=== PATIENT | female | born 1950 | race Caucasian/White ===

== ENCOUNTER 2022-11-11 10:28 | Emergency (ER) | payer MEDICARE, BC ==
[~2022-11-11] VITALS: Ht 165.1 cm; Wt 102.1 kg
[2022-11-11 11:29] LABS: BASOPHILS ABSOLUTE AUTO 0.04 K/mm3 (0.00-0.23); BASOPHILS PERCENT AUTO 1 % (0-2); EOSINOPHILS ABSOLUTE AUTO 0.07 K/mm3 (0.00-0.68); EOSINOPHILS PERCENT AUTO 1 % (0-6); Hematocrit 40.1 % (33.0-51.0); Hemoglobin 13.5 g/dL (11.5-16.0); IMMATURE GRAN ABSOLUTE AUTO 0.02 K/mm3 (0.00-0.10); IMMATURE GRAN PERCENT AUTO 0 % (0-1); LYMPHOCYTES ABSOLUTE AUTO 0.94 K/mm3 (0.84-5.20); LYMPHOCYTES PERCENT AUTO 16 % (21-46); MONOCYTES ABSOLUTE AUTO 0.45 K/mm3 (0.16-1.47); MONOCYTES PERCENT AUTO 8 % (4-13); Mean Corpuscular HGB 30.3 pg (26.0-34.0); Mean Corpuscular HGB Conc 33.7 g/dL (31.5-36.5); Mean Corpuscular Volume 90 fL (80-100); Mean Platelet Volume 9.9 fL (9.1-12.4); NEUTROPHILS ABSOLUTE AUTO 4.48 K/mm3 (1.96-9.15); NEUTROPHILS PERCENT AUTO 75 % (41-73); Platelet Count 256 K/mm3 (150-400); RDW Coefficient Variation 12.3 % (11.7-14.2); RDW Standard Deviation 39.9 fL (35.1-46.3); Red Blood Cell Count 4.45 M/mm3 (3.80-5.20)
[2022-11-11 11:51] LABS: Bilirubin, Total 0.5 mg/dL (0.1-1.0); Bun/Creatinine Ratio 30.6 (12.0-20.0); Calcium, Blood 9.8 mg/dL (8.5-10.1); Creatinine, Blood 1.08 mg/dL (0.40-1.00); Globulin, Blood 4.1 g/dL (2.2-4.0); Potassium, Blood 3.3 mmol/L (3.5-5.5); Total Protein, Blood 8.1 g/dL (6.4-8.2)
[2022-11-11] MEDS ORDERED: LOSARTAN-HCTZ1 EACH PO (12:16)
[2022-11-11] MEDS ORDERED: ASPI81CH PO (12:17)
[2022-11-11] MEDS ORDERED: METO100ER PO (12:17)
[2022-11-11] MEDS ORDERED: FURO20 PO (12:18)
[2022-11-11] MEDS ORDERED: PROB500 PO (12:18)
[2022-11-11] MEDS ORDERED: ELIQUIS5 MG PO (15:32)
[2022-11-11 15:41] VITALS: BP 135/72
== END 2022-11-11 15:48 | disposition home or self-care (01) ==
LOC: ER 10:28
PROVIDERS: Physician Assistant
DX: I48.91 Unspecified atrial fibrillation (principal); Z88.0 Allergy status to penicillin; Z88.8 Allergy status to other drugs, medicaments and biological substances; Z79.899 Other long term (current) drug therapy; Z79.82 Long term (current) use of aspirin
CPT/HCPCS: 36415; 71046; 80053; 83735; 83880; 84484; 85025; 93005; 93010; 96361; 96365; 99285-25; A9270; J3475; J7030

== ENCOUNTER 2022-12-07 10:00 | Day surgery (SDC) | payer MEDICARE, BC ==
[~2022-12-07 10:00] MED LIST: ASPI81CH PO; ELIQUIS5 MG PO; FURO20 PO; LOSARTAN-HCTZ1 EACH PO; METO100ER PO; PROB500 PO
== END 2022-12-13 23:36 | disposition home or self-care (01) ==
LOC: MOI MAM 10:00
DX: C50.811 Malignant neoplasm of overlapping sites of right female breast (principal)
CPT/HCPCS: 19083; 77065; 88305; 88341; 88342; 88360; A4648

== ENCOUNTER 2022-12-21 05:45 | Day surgery (SDC) | payer MEDICARE, BC ==
[~2022-12-21] VITALS: Ht 160 cm; Wt 102.3 kg
[2022-12-21] VITALS (11 sets, daily range): BP systolic 112–162; BP diastolic 56–74
[2022-12-21] MEDS ORDERED: CENTRUM SILVER1 EAC2 PO (06:39)
--- NOTE | 2022-12-21 07:13 | NUR ---
Ambulatory in Day Surgery History, Chart, Medications and Allergies reviewed before start of procedure.Patient confirms NPO status and agrees with scheduled surgery. Pre-Op teaching done. Pt verbalizes understanding. Patient States Post-Procedure ride home has been arranged.
--- NOTE | 2022-12-21 09:37 | NUR ---
Patient up to Ambulate independently. Gait steady. Discharged via wheelchair to private car for ride home.
== END 2022-12-24 23:18 | disposition home or self-care (01) ==
LOC: ORSCMMR 05:45 → ORD 07:30 → ORSCMMR 07:30
PROVIDERS: Surgery
PROC: 0JH60WZ Insertion of Totally Implantable Vascular Access Device into Chest Subcutaneous Tissue and Fascia, Open Approach (ICD-10-PCS; principal; 2022-12-21 07:30)
PROC: B544ZZA Ultrasonography of Left Jugular Veins, Guidance (ICD-10-PCS; principal; 2022-12-21 07:30)
PROC: 05HN33Z Insertion of Infusion Device into Left Internal Jugular Vein, Percutaneous Approach (ICD-10-PCS; principal; 2022-12-21 07:30)
DX: C50.911 Malignant neoplasm of unspecified site of right female breast (principal); Z17.1 Estrogen receptor negative status [ER-]; I10 Essential (primary) hypertension; I48.0 Paroxysmal atrial fibrillation; I35.0 Nonrheumatic aortic (valve) stenosis; Z79.899 Other long term (current) drug therapy; Z79.82 Long term (current) use of aspirin
CPT/HCPCS: 77001; C1788; J0690; J1642; J1885; J2250; J2370; J2795; J3010; J7120

== ENCOUNTER → 2023-01-16 | Outpatient (CLI) | payer MEDICARE, BC ==
[~2023-01-16] MED LIST changes: +CENTRUM SILVER1 EAC2 PO
[2023-01-16 14:22] LABS: Platelet Count 381 K/mm3 (150-400)
[2023-01-16 14:38] LABS: International Normalized Ratio 1.03; Prothrombin Time Results 10.8 Sec (9.7-11.5)
== END | disposition home or self-care (01) ==
LOC: LAB SHORT 13:15 → LAB 13:15
PROVIDERS: Registered Nurse Oncology
DX: S90.31XA Contusion of right foot, initial encounter (principal)
CPT/HCPCS: 85049; 85610; 85730

== ENCOUNTER 2023-04-12 08:57 | Day surgery (SDC) | payer MEDICARE, BC | END 2023-04-24 23:52 | disposition home or self-care (01) | LOC: MOI US 08:57 → MOI MAM 09:30 → MOI US 04-15 09:30 | DX: C50.211 Malignant neoplasm of upper-inner quadrant of right female breast (principal) | CPT/HCPCS: 19285; 77065; A4648 ==

== ENCOUNTER 2023-04-15 07:19 | Day surgery (SDC) | payer MEDICARE, BC ==
[2023-04-15] VITALS (7 sets, daily range): BP systolic 103–132; BP diastolic 61–88
[~2023-04-15] VITALS: Ht 164 cm; Wt 98.2 kg
--- NOTE | 2023-04-15 09:19 | NUR ---
Ambulatory in Day Surgery History, Chart, Medications and Allergies reviewed before start of procedure.Patient confirms NPO status and agrees with scheduled surgery. Patient reports completing Chlorhexadine shower X2 prior to admission to hospital.Surgical site prepped with 2% Chlorhexidine cloth wipe. Patient States Post-Procedure ride home has been arranged.
--- NOTE | 2023-04-15 13:10 | NUR ---
Patient up to Ambulate independently. Gait steady. Discharge instructions reviewed with patient. Patient verbalizes understanding. Copy given to patient to take home. Discharged via wheelchair to private car for ride home WITH . GLASSES AND CLOTHES GIVEN TO PATIENT.
== END 2023-04-15 13:10 | disposition home or self-care (01) ==
LOC: ORSCMMR 07:19 → NM 07:19 → ORSCMMR 07:20 → NM 08:30 → ORSCMMR 13:10 → NM 23:06
PROVIDERS: Surgery
PROC: 07B50ZX Excision of Right Axillary Lymphatic, Open Approach, Diagnostic (ICD-10-PCS; principal; 2023-04-15 09:30)
PROC: 0HBT0ZZ Excision of Right Breast, Open Approach (ICD-10-PCS; principal; 2023-04-15 09:30)
DX: C50.211 Malignant neoplasm of upper-inner quadrant of right female breast (principal); Z17.1 Estrogen receptor negative status [ER-]; D36.0 Benign neoplasm of lymph nodes; I10 Essential (primary) hypertension; Z79.899 Other long term (current) drug therapy; E66.9 Obesity, unspecified; Z68.36 Body mass index [BMI] 36.0-36.9, adult; E78.5 Hyperlipidemia, unspecified; Z79.82 Long term (current) use of aspirin
CPT/HCPCS: 38792; 76098; 88307; A9270; A9520; J0690; J1100; J1885; J2250; J2371; J2405; J2704; J3010; J7120; Q9968

== ENCOUNTER 2023-06-20 22:22 | Inpatient (IN) | payer MEDICARE, BC ==
[~2023-06-20] VITALS: Ht 165.1 cm; Wt 108.0 kg
[2023-06-20 23:10] LABS: BASOPHILS ABSOLUTE AUTO 0.01 K/mm3 (0.00-0.23); BASOPHILS PERCENT AUTO 0 % (0-2); EOSINOPHILS PERCENT AUTO 0 % (0-6); Hematocrit 36.8 % (33.0-51.0); Hemoglobin 12.4 g/dL (11.5-16.0); IMMATURE GRAN ABSOLUTE AUTO 0.03 K/mm3 (0.00-0.10); IMMATURE GRAN PERCENT AUTO 0 % (0-1); LYMPHOCYTES ABSOLUTE AUTO 0.28 K/mm3 (0.84-5.20); LYMPHOCYTES PERCENT AUTO 4 % (21-46); MONOCYTES ABSOLUTE AUTO 1.04 K/mm3 (0.16-1.47); MONOCYTES PERCENT AUTO 13 % (4-13); Mean Corpuscular HGB 29.9 pg (26.0-34.0); Mean Corpuscular HGB Conc 33.7 g/dL (31.5-36.5); Mean Corpuscular Volume 89 fL (80-100); Mean Platelet Volume 9.2 fL (9.1-12.4); NEUTROPHILS ABSOLUTE AUTO 6.47 K/mm3 (1.96-9.15); NEUTROPHILS PERCENT AUTO 83 % (41-73); NRBC ABSOLUTE 0.02 K/mm3 (0.00-0.02); NRBC Auto 0.3 /100 WBC (0.0-0.2); Platelet Count 308 K/mm3 (150-400); RDW Coefficient Variation 14.7 % (11.7-14.2); RDW Standard Deviation 44.8 fL (35.1-46.3); Red Blood Cell Count 4.15 M/mm3 (3.80-5.20); White Blood Cell Count 7.83 K/mm3 (4.00-11.30)
[2023-06-20 23:37] LABS: Albumin/Globulin Ratio 0.9 (0.8-1.8); Bilirubin, Total 1.7 mg/dL (0.1-1.0); Bun/Creatinine Ratio 22.9 (12.0-20.0); Calcium, Blood 8.6 mg/dL (8.5-10.1); Creatinine, Blood 3.45 mg/dL (0.40-1.00); Globulin, Blood 3.2 g/dL (2.2-4.0); Magnesium, Blood 1.9 mg/dL (1.6-2.4); Potassium, Blood 3.3 mmol/L (3.5-5.5); Total Protein, Blood 6.2 g/dL (6.4-8.2)
[2023-06-20] MEDS ORDERED: ELIQUIS5 M2 PO (23:41)
[2023-06-21] VITALS (84 sets, daily range): BP systolic 66–117; BP diastolic 39–73
[2023-06-21] MEDS ORDERED: CAPE500 (01:05)
[2023-06-21 02:12] LABS: Adenovirus F 40/41 Not Detected (NOT DETECT); Astrovirus Not Detected (NOT DETECT); Campylobacter Sp Not Detected (NOT DETECT); Cryptosporidium Not Detected (NOT DETECT); Cyclospora Cayetanensis Not Detected (NOT DETECT); E. Coli O157 Not Detected (NOT DETECT); Entamoeba Histolytica Not Detected (NOT DETECT); Enteroaggregative E. coli-EAEC Not Detected (NOT DETECT); Enteropathogenic E. coli-EPEC Not Detected (NOT DETECT); Enterotoxigenic E. coli-ETEC Not Detected (NOT DETECT); Giardia Lamblia Not Detected (NOT DETECT); Norovirus GI/GII Not Detected (NOT DETECT); Plesiomonas Shigelloides Not Detected (NOT DETECT); Rotavirus A Not Detected (NOT DETECT); Salmonella Sp Not Detected (NOT DETECT); Sapovirus Not Detected (NOT DETECT); Shiga Toxin-prod E. coli-STEC Not Detected (NOT DETECT); Shigella/Enteroin E. coli-EIEC Not Detected (NOT DETECT); Vibrio Cholerae Not Detected (NOT DETECT); Vibrio Sp Not Detected (NOT DETECT); Yersinia Enterocolitica Not Detected (NOT DETECT)
[2023-06-21 03:59] LABS: BASOPHILS ABSOLUTE AUTO 0.01 K/mm3 (0.00-0.23); BASOPHILS PERCENT AUTO 0 % (0-2); EOSINOPHILS PERCENT AUTO 0 % (0-6); Hemoglobin 11.2 g/dL (11.5-16.0); IMMATURE GRAN ABSOLUTE AUTO 0.03 K/mm3 (0.00-0.10); IMMATURE GRAN PERCENT AUTO 0 % (0-1); LYMPHOCYTES ABSOLUTE AUTO 0.23 K/mm3 (0.84-5.20); LYMPHOCYTES PERCENT AUTO 3 % (21-46); MONOCYTES ABSOLUTE AUTO 0.75 K/mm3 (0.16-1.47); MONOCYTES PERCENT AUTO 10 % (4-13); Mean Corpuscular HGB 30.3 pg (26.0-34.0); Mean Corpuscular HGB Conc 33.9 g/dL (31.5-36.5); Mean Corpuscular Volume 89 fL (80-100); Mean Platelet Volume 9.1 fL (9.1-12.4); NEUTROPHILS ABSOLUTE AUTO 6.33 K/mm3 (1.96-9.15); NEUTROPHILS PERCENT AUTO 86 % (41-73); Platelet Count 292 K/mm3 (150-400); RDW Coefficient Variation 14.6 % (11.7-14.2); RDW Standard Deviation 44.6 fL (35.1-46.3); White Blood Cell Count 7.35 K/mm3 (4.00-11.30)
[2023-06-21 04:18] LABS: Albumin, Blood 2.7 g/dL (3.4-5.0); Bilirubin, Total 2.1 mg/dL (0.1-1.0); Bun/Creatinine Ratio 27.5 (12.0-20.0); Calcium, Blood 8.2 mg/dL (8.5-10.1); Creatinine, Blood 2.62 mg/dL (0.40-1.00); Globulin, Blood 2.7 g/dL (2.2-4.0); Potassium, Blood 3.1 mmol/L (3.5-5.5); Total Protein, Blood 5.4 g/dL (6.4-8.2)
--- NOTE | 2023-06-21 05:51 | NUR ---
PATIENT AOX4. AFIB WITH MAP GOAL OF >60. LEVOPHED INFUSING. ROOM AIR. NPO. DIARRHEA, RECTAL TUBE IN PLACE. PUREWICK. PORT ACCESSED.
--- NOTE | 2023-06-21 07:38 | NUR ---
AM NOTE... ASSUMED CARE OF PT AT 0700. PT IS A&Ox4. SHE IS ON LEVOPHED AT 4MCG/MIN TO KEEP MAPS>60. SHE IS IN AFIB IN THE 90'S. NO EDEMA IS NOTED ON THIS ASSESSMENT. SHE IS ON RA WITH O2 SATS>95% L/S CLEAR T/O. BT PRESENT AND HYPERACTIVE, ABD IS SOFT TO PALPATION. RECTAL TUBE IS IN PLACE WITH LIQUID BROWN STOOL. PURWICK IS IN PLACE AT THIS TIME. PT CURRENTLY DENIES ANY PAIN OR N/V. WILL CONTINUE TO MONITOR.
--- NOTE | 2023-06-21 17:46 | NUR ---
SHIFT SUMMARY.... THE PT CONTINUES TO BE ON LEVOPHED DRIP AT 2MCG/MIN TO KEEP MAPS>60. LR RUNNING AT 250MLS/HR. SHE CONTINUES TO BE IN AFIB IN THE 90'S-100'S. THE RECTAL TUBE HAD DRAINED APROX 2L OF LIQUID BROWN STOOL TO GRAVITY. PURWICK IN PLACE HAD DRAINED 750MLS OF DARK YELLOW URINE. SHE DENIES ANY N/V SOB OR PAIN THIS SHIFT. CALL LIGHT IN REACH WILL CONTINUE TO MONITOR UNTIL REPORT IS GIVEN TO ONCOMING RN.
[2023-06-22] VITALS (89 sets, daily range): BP systolic 74–115; BP diastolic 44–73
[2023-06-22 04:34] LABS: Hematocrit 31.4 % (33.0-51.0); Hemoglobin 10.4 g/dL (11.5-16.0); Mean Corpuscular HGB 29.9 pg (26.0-34.0); Mean Corpuscular HGB Conc 33.1 g/dL (31.5-36.5); Mean Corpuscular Volume 90 fL (80-100); Mean Platelet Volume 8.8 fL (9.1-12.4); Platelet Count 264 K/mm3 (150-400); RDW Coefficient Variation 14.6 % (11.7-14.2); RDW Standard Deviation 44.6 fL (35.1-46.3); Red Blood Cell Count 3.48 M/mm3 (3.80-5.20)
--- NOTE | 2023-06-22 04:45 | NUR ---
SHIFT SUMMARY A/O X4, DID NOT SLEEP MUCH. AFIB W/RATE 90-130'S AT TIMES. BP SUPPORTED WITH LEVOPHED @ 2. O2 SAT 96% ON ROOM AIR, LUNG SOUNDS ARE CLEAR. 1 EPISODE OF VOMITING (700 ML) WITHOUT NAUSEA. PT STATES IT JUST CAME WITHOUT WARNING. HEARTBURN RESOLVED QUICKLY AFTER EMISIS. RECTAL TUBE IN PLACE DRAINING LIQUID BROWN STOOL. SKIN UNCHANGED, JUN AREA SEVERELY REDDENED. CLEANSED GENTLY AND BARRIER CREAM APPLIED. MEDIPORT TO LEFT CHEST ACCESSED AND INFUSING, PIV INFUSING WELL. GRANDSON IN TO VISIT, UPDATED ON CURRENT CONDITION. POC ONGOING.
[2023-06-22 04:56] LABS: BAND PERCENT MAN 14 % (0-8); BASOPHILS PERCENT MAN 0 % (0-2); EOSINOPHILS PERCENT MAN 0 % (0-6); LYMPHOCYTES ABSOLUTE MAN 0.51 K/mm3 (0.84-5.20); LYMPHOCYTES PERCENT MAN 10 % (21-46); MONOCYTES ABSOLUTE MAN 1.22 K/mm3 (0.16-1.47); MONOCYTES PERCENT MAN 24 % (4-13); NEUTROPHILS ABSOLUTE MAN 3.36 K/mm3 (1.96-9.15); SEG NEUTROPHILS PERCENT MAN 52 % (41-73); TOTAL CELLS COUNTED 100
[2023-06-22 04:59] LABS: Bun/Creatinine Ratio 34.2 (12.0-20.0); Calcium, Blood 8.5 mg/dL (8.5-10.1); Creatinine, Blood 1.11 mg/dL (0.40-1.00); Magnesium, Blood 1.8 mg/dL (1.6-2.4); Phosphorus, Blood 2.1 mg/dL (2.5-4.9); Potassium, Blood 2.7 mmol/L (3.5-5.5)
--- NOTE | 2023-06-22 08:42 | NUR ---
AM NOTE... ASSUMED CARE OF PT AT 0700. PT IS A&Ox4. SHE IS IN AFIB IN THE 90'S-100'S BP IS SOFT WITH MAPS >60 WITH LEVOPHED DRIP AT 4MCG/MIN. LR RUNNING AT 250MLS/HR WHICH WAS CHANGED TO 125MLS/HR PER DR. BENJAMIN. L/S CLEAR T/O PT IS ON RA WITH O2 SATS >95%. RECTAL TUBE IS PATENT AND DRAINING LIQUID BROWN STOOLS TO GRAVITY. PURWICK IS IN PLACE. WILL CONTINUE TO MONITOR.
[2023-06-22 13:44] LABS: Bun/Creatinine Ratio 29.4 (12.0-20.0); Calcium, Blood 8.4 mg/dL (8.5-10.1); Creatinine, Blood 1.02 mg/dL (0.40-1.00); Potassium, Blood 2.9 mmol/L (3.5-5.5)
--- NOTE | 2023-06-22 17:41 | NUR ---
SHIFT SUMMARY.... NO ACUTE NEGATIVE CHANGES NOTED THIS SHIFT. PT CONTINUES TO BE ON LEVOPHED AT 6MCG/MIN TO KEEP MAPS >60. HER DIARRHEA HAS GREATLY DECREASED THIS SHIFT ONLY HAVING 200MLS OUT OF THE RECTAL TUBE. THE PURWICK IS ALSO WORKING WELL AT THIS TIME. PT HAS NOT SLEPT AT ALL THIS SHIFT, MULTIPLE FAMILY MEMBERS HAVE BEEN IN THE ROOM ALL DAY. THE PT HAS NOT EATEN THIS SHIFT D/T VERY POOR APPETITE AND 2 EPISODSE OF NAUSEA WITH 1 EPISODE OF EMESIS. THE PT RESPONDED BETTER TO COMPAZINE PER PT REPORT. CALL LIGHT IN REACH WILL CONTINUE TO MONITOR UNTIL REPORT IS GIVEN TO ONCOMING RN.
--- NOTE | 2023-06-22 21:05 | NUR ---
ASSUMED CARE PT IS A&O X4; PLEASANT AND COOPERATIVE W/ CARE. FAMILY AT BEDSIDE AT START OF SHIFT. WHILE TURNING PT, PT BECAME NAUSEOUS AND HAD 800ML'S OF EMESIS, NO ANTI-NAUSEA MEDICATION GIVEN D/T PT DENYING NAUSEA AFTER INITIAL BOUT. SPO2 >92% ON RA; MAP >65 W/ LEVOPHED INFUSING; HR IN THE 100-110'S, W/ SPIKES UP TO 150-160'S W/ ANY EXERTION. PT DENIES CP, SOB, AND NAUSEA. RECTAL TUBE PATENT AND DRAINING TO GRAVITY; PUREWICK IN PLACE. PT IS RESTING QUIETLY AT THIS TIME.
[2023-06-23] VITALS (65 sets, daily range): BP systolic 71–133; BP diastolic 47–97
[2023-06-23 03:17] LABS: Hematocrit 32.8 % (33.0-51.0); Hemoglobin 10.9 g/dL (11.5-16.0); Mean Corpuscular HGB 30.2 pg (26.0-34.0); Mean Corpuscular HGB Conc 33.2 g/dL (31.5-36.5); Mean Corpuscular Volume 91 fL (80-100); Mean Platelet Volume 8.6 fL (9.1-12.4); NRBC ABSOLUTE 0.02 K/mm3 (0.00-0.02); NRBC Auto 0.3 /100 WBC (0.0-0.2); Platelet Count 312 K/mm3 (150-400); RDW Coefficient Variation 15.3 % (11.7-14.2); RDW Standard Deviation 45.8 fL (35.1-46.3); Red Blood Cell Count 3.61 M/mm3 (3.80-5.20); White Blood Cell Count 6.07 K/mm3 (4.00-11.30)
[2023-06-23 03:38] LABS: Bun/Creatinine Ratio 25.3 (12.0-20.0); Calcium, Blood 8.2 mg/dL (8.5-10.1); Creatinine, Blood 0.99 mg/dL (0.40-1.00); Potassium, Blood 3.3 mmol/L (3.5-5.5)
[2023-06-23 05:11] LABS: BAND PERCENT MAN 35 % (0-8); BASOPHILS PERCENT MAN 0 % (0-2); EOSINOPHILS PERCENT MAN 0 % (0-6); LYMPHOCYTES ABSOLUTE MAN 0.48 K/mm3 (0.84-5.20); LYMPHOCYTES PERCENT MAN 8 % (21-46); MONOCYTES ABSOLUTE MAN 1.09 K/mm3 (0.16-1.47); MONOCYTES PERCENT MAN 18 % (4-13); NEUTROPHILS ABSOLUTE MAN 4.49 K/mm3 (1.96-9.15); SEG NEUTROPHILS PERCENT MAN 39 % (41-73); TOTAL CELLS COUNTED 100
--- NOTE | 2023-06-23 05:48 | NUR ---
SHIFT SUMMARY PT REMAINS A&O X4. CONTINUES TO DENY CP, SOB, OR NAUSEA. PT VOMITED TWICE TONIGHT AND STATES THAT SHE FELT NO NAUSEA PRECIPITATING EVENT. COMPLAINED OF MILD NAUSEA FOR SECOND EVENT. PT DENIES ABDOMINAL PAIN/FULLNESS. MINIMAL OUTPUT IN RECTAL TUBE. RATE IN THE 100'S, MAP >65, AND SPO2 >92% ON RA. LEVOPHED INFUSING. PT RATE IN THE 100-110'S; RATE UP INTO 180-200'S WHILE VOMITING. 140-150'S W/ EXERTION. NO COMPLAINTS OF DIZZINESS OR CP W/ BOTH EVENTS. DR TANNER NOTIFIED ABOUT HR SPIKES W/ ORDERS FOR 500NS BOLUS. PUREWICK AND RECTAL TUBE PATENT AND DRAINING TO GRAVITY.
--- NOTE | 2023-06-23 08:12 | NUR ---
AM NOTE... ASSUMED CARE OF PT AT 0700. PT IS A&Ox4. SHE IS IN AFIB IN THE 120'S-160'S. LEVOPHED IS RUNNING AT 12MCG/MIN TO KEEP MAPS>60. PT DENIES ANY CHEST PAIN/PRESSURE OR SOB. SHE IS ON RA WITH O2 SATS>95% L/S CLEAR T/O. BT PRESENT AND HYPOACTIVE, ABD IS SOFT AND NONTENDER TO PALPATION. PT HAD A RECTAL TUBE THAT WAS REMOVED DURING THIS ASSESSMENT D/T SCANT STOOL THE LAST 2 SHIFTS. PURWICK WAS REPLACED. CALL LIGHT IN REACH WILL CONITNUE TO MONITOR.
[2023-06-23 08:18] LABS: Albumin, Blood 1.9 g/dL (3.4-5.0); Albumin/Globulin Ratio 0.7 (0.8-1.8); Bilirubin, Total 0.7 mg/dL (0.1-1.0); Bun/Creatinine Ratio 22.3 (12.0-20.0); Calcium, Blood 8.3 mg/dL (8.5-10.1); Creatinine, Blood 1.03 mg/dL (0.40-1.00); Globulin, Blood 2.7 g/dL (2.2-4.0); Potassium, Blood 3.4 mmol/L (3.5-5.5); Total Protein, Blood 4.6 g/dL (6.4-8.2)
[2023-06-23 08:22] LABS: International Normalized Ratio 1.57; Prothrombin Time Results 16.1 Sec (9.7-11.5)
[2023-06-23 09:55] LABS: Source, Urine Clean Catch
[2023-06-23 10:10] LABS: Appearance, Urine Bloody (Clear); Bilirubin, Urine Neg (Neg); Blood, Urine 5+ (Neg); Color, Urine Brown (P-Yellow); Glucose Qualitative, Urine Neg (Neg); Ketones, Urine 1+ (Neg); Leukocyte Esterase, Urine 3+ (Neg); Nitrite, Urine Neg (Neg); Protein, Urine 3+ (Neg); Urobilinogen, Urine NORM (Normal)
--- NOTE | 2023-06-23 10:23 | NUR ---
PT UPDATE.... PT'S TEMP IS TRENDING UP FROM 100.9 TO 101.8, PROVIDER AWARE. PLANS TO ATTEMPT TO COBRA TRANSFER PT FOR UROLOGIST. PT HAD AN EPISODE OF N/V WITH 600MLS OF GREEN LIQUID EMESIS. DURING THIS EPISODE OF N/V THE PT'S HR INCREASED TO THE 200'S, PT WAS NOT SYMPTOMATIC DURING THIS TIME. PLAN TO PLACE A PICC LINE FOR INCREASED ACCESS. WILL CONTINUE TO MONITOR.
[2023-06-23 10:33] LABS: Red Blood Cells, Urine TNTC /hpf (0-2)
[2023-06-23 10:34] LABS: White Blood Cells, Urine 25-50 /hpf (0-5)
[2023-06-23 10:37] LABS: Bacteria Many /hpf; Squamous Epithelial Cells Rare /hpf (Few)
[2023-06-23 13:02] LABS: Source, Urine Foley catheter
[2023-06-23 13:08] LABS: Bilirubin, Urine Neg (Neg); Blood, Urine 5+ (Neg); Glucose Qualitative, Urine 1+ (Neg); Ketones, Urine 1+ (Neg); Leukocyte Esterase, Urine 3+ (Neg); Nitrite, Urine Pos (Neg); Protein, Urine 3+ (Neg); Specific Gravity, Urine 1.015 (1.003-1.022); Urobilinogen, Urine NORM (Normal)
[2023-06-23 13:28] LABS: Appearance, Urine Cloudy (Clear); Color, Urine Amber (P-Yellow)
[2023-06-23 13:31] LABS: Granular Casts 0-2 /lpf (0)
[2023-06-23 13:32] LABS: Bacteria Many /hpf; Red Blood Cells, Urine TNTC /hpf (0-2); Squamous Epithelial Cells Not Seen /hpf (Few)
--- NOTE | 2023-06-23 17:40 | NUR ---
SHIFT SUMMARY.... PT CONTINUES TO BE IN AFIB W/RVR IN THE 120'S-140'S. LEVOPHED IS NOW DOWN TO 6MCG/MIN TO KEEP MAPS>65. A REINOSO WAS PLACED PER ORDERS, THE PT'S URINE IS NOW DARK CARA/RED, UA W/CULTURE WAS SENT. PT HAS NOT HAD A BM THIS SHIFT. HER ABD IS MORE DISTENTED AND SLIGHTLY FIRM TO PALPATION. PT DOES ADMIT TO SOME TENDERNESS WITH PALPATION. SHE HAS NOT HAD ANY MORE EPISODES OF N/V SINCE EARLIER THIS SHIFT. THE PT'S CURRENT TEMP IS 101.9, SHE WAS MEDICATED WITH TYLENOL PER EMAR WITH NO RESULTS. CALL LIGHT IN REACH WILL CONTINUE TO MONITOR UNTIL REPORT IS GIVEN TO ONCOMING RN.
--- NOTE | 2023-06-23 21:03 | NUR ---
ASSUMED CARE PT FAMILY IN AT START OF SHIFT. PT A&O X4; SPO2 >92% ON RA; MAP >65 W/ LEVOPHED INFUSING. HEPARIN INFUSING PER ORDER. HR 110-120'S W/ SPIKES TO 180 WHILE VOMITING. PT HAD A BOUT OF EMESIS RIGHT BEFORE NOTE W/ 1000ML'S OF DARK GREEN. NAUSEOUS WHILE VOMITING BUT DENIES NAUSEA BEFORE EVENT. DENIES CP, SOB, OR NUMBNESS/TINGLING AT REST AND DURING EMESIS/HR SPIKE.
[2023-06-24] VITALS (86 sets, daily range): BP systolic 78–161; BP diastolic 45–94
[2023-06-24 01:17] LABS: Hematocrit 29.6 % (33.0-51.0); Hemoglobin 9.4 g/dL (11.5-16.0); Mean Corpuscular HGB 29.4 pg (26.0-34.0); Mean Corpuscular HGB Conc 31.8 g/dL (31.5-36.5); Mean Corpuscular Volume 93 fL (80-100); Mean Platelet Volume 8.7 fL (9.1-12.4); Platelet Count 278 K/mm3 (150-400); RDW Coefficient Variation 15.6 % (11.7-14.2); RDW Standard Deviation 46.9 fL (35.1-46.3); White Blood Cell Count 5.31 K/mm3 (4.00-11.30)
[2023-06-24 01:33] LABS: International Normalized Ratio 1.85; Prothrombin Time Results 18.8 Sec (9.7-11.5)
[2023-06-24 01:39] LABS: BAND PERCENT MAN 39 % (0-8); BASOPHILS PERCENT MAN 0 % (0-2); EOSINOPHILS ABSOLUTE MAN 0.21 K/mm3 (0.00-0.68); EOSINOPHILS PERCENT MAN 4 % (0-6); LYMPHOCYTES ABSOLUTE MAN 0.31 K/mm3 (0.84-5.20); LYMPHOCYTES PERCENT MAN 6 % (21-46); MONOCYTES PERCENT MAN 17 % (4-13); NEUTROPHILS ABSOLUTE MAN 3.87 K/mm3 (1.96-9.15); SEG NEUTROPHILS PERCENT MAN 34 % (41-73); TOTAL CELLS COUNTED 100
[2023-06-24 01:41] LABS: Albumin, Blood 1.7 g/dL (3.4-5.0); Albumin/Globulin Ratio 0.7 (0.8-1.8); Bilirubin, Total 0.6 mg/dL (0.1-1.0); Bun/Creatinine Ratio 19.7 (12.0-20.0); Calcium, Blood 7.7 mg/dL (8.5-10.1); Creatinine, Blood 0.81 mg/dL (0.40-1.00); Globulin, Blood 2.5 g/dL (2.2-4.0); Magnesium, Blood 1.8 mg/dL (1.6-2.4); Phosphorus, Blood 1.7 mg/dL (2.5-4.9); Potassium, Blood 3.5 mmol/L (3.5-5.5); Total Protein, Blood 4.2 g/dL (6.4-8.2)
--- NOTE | 2023-06-24 02:00 | NUR ---
UPDATE PT HAD LARGE LIQUID BROWN BOWEL MOVEMENT. WHILE CLEANING PT, PT WOULD COUGH AND LIQUID STOOL WOULD CONSISTENTLY COME OUT. RECTAL TUBE WAS REPLACED AND IS PATENT.
--- NOTE | 2023-06-24 06:03 | NUR ---
SHIFT SUMMARY NO ACUTE EVENTS SINCE PREVIOUS NOTES. PT RESTING QUIETLY W/ NO MORE BOUTS OF EMESIS. VSS W/ MAP >65; HR IN THE 100'S; SPO2 >92% ON RA. LEVOPHED, LR, AND HEPARIN INFUSING PER ORDER. REINOSO CATHETER AND RECTAL TUBE PATENT AND DRAINING TO GRAVITY.
--- NOTE | 2023-06-24 07:30 | NUR ---
ASSUMED CARE: PT RESTING IN BED, ON RA. AFIB AT 104 ON TELE. LEVOPHED AT 10MCG/MIN. HEPARIN ORDER VERIFIED WITH NIGHT RN. PT WITH RECTAL TUBE IN PLACE DRAINING BROWN LIQUID. REINOSO CATH DRAINING MAROON TINGED URINE. PT'S FAMILY AT BEDSIDE. CALL LIGHT IN REACH. DENIES NEEDS OR CONCERNS AT THIS TIME.
--- NOTE | 2023-06-24 09:56 | NUR ---
CT CALLED TO SCHEDULE DRAIN PLACEMENT FOR PATIENT AND INSTRUCTED TO STOP HEPARIN AT [address]. DISCUSS[address] GHOSH WHO REQUESTED TO LET DR OSWALD KNOW SO THAT SHE CAN COME SEE PT PRIOR TO THIS. CONTACTED DR OSWALD WHO IS CURRENTLY AT BEDSIDE.
--- NOTE | 2023-06-24 10:46 | NUR ---
DR OSWALD VISITED PT AND PLANS TO HAVE DRAIN PLACED BY CT FOR CHOLECYSTITIS. PHARMACY AWARE THAT HEPARIN IS TO BE STOPPED AT NOON. DR OSWALD NOTED THAT RIGHT ARM WAS SWOLLEN, MORESO THAN THIS AM. BP CUFF ON THAT SIDE AND PT DOES HAVE A HX OF LYMPHECTOMY. BP CUFF SWITCHED TO LEFT LEG. DR OSWALD AWARE AND VENOUS ULTRA SOUND ORDERED
--- NOTE | 2023-06-24 12:08 | NUR ---
SPARE HAND AT BEDSIDE AT THIS TIME FOR VENOUS DOPPLER
--- NOTE | 2023-06-24 14:50 | NUR ---
pt taken to ct for pigtail drain applied to gall bladder. pt was given 25mcg of fentanyl prior to procedure and stated no pain. drain in place and draining green fluid. family at bedside. radiologist contact to determine if preference for resuming heparin. no preference so hand laminator requested to resume at 1730. pharmacy aware
--- NOTE | 2023-06-24 17:38 | NUR ---
HEPARIN RESTARTED PER PREVIOUS ORDERS PER DIRECTION BY DR GHOSH
--- NOTE | 2023-06-24 17:56 | NUR ---
SHIFT SUMMARY: PT HAD A GONSALO PIGTAIL DRAIN PLACED THIS SHIFT. DRAINING GREEN, THICK LIQUID. PT DENIES NAUSEA AND NO EMESIS THIS SHIFT. RECTAL TUBE IN PLACE FOR LIQUID BROWN STOOL. REINOSO CATH DRAINING MAROON COLORED URINE. LEVOPHED OFF AT THIS TIME DUE TO STABLE VITALS. FAMILY AT BEDSIDE. NO ACUTE NEEDS OR CONCERNS AT THIS TIME
--- NOTE | 2023-06-24 18:11 | NUR ---
CALL TO DR GHOSH REGARDING PT'S HR TRENDING 130S-150S. BP CURRENTLY 103/62. INSTRUCTIONS FROM DR GHOSH FOR PRESSORS IF NEEDED.
--- NOTE | 2023-06-24 20:34 | NUR ---
ASSUMED CARE PT IS A&O X4; SPO2 >92% ON RA; MAP >65; HR VARIABLE IN THE 130-140'S. PT DENIES CP, SOB, OR NAUSEA. DRAIN SITE WNL. HEPARIN INFUSING PER EMAR. RECTAL TUBE AND REINOSO PATENT AND DRAINING TO GRAVITY.
[2023-06-24 21:36] LABS: Vancomycin, Trough 16.2 ug/mL (5.0-10.0)
[2023-06-25] VITALS (89 sets, daily range): BP systolic 75–136; BP diastolic 47–88
[2023-06-25 03:31] LABS: Hemoglobin 7.8 g/dL (11.5-16.0); Mean Corpuscular HGB 29.7 pg (26.0-34.0); Mean Corpuscular HGB Conc 31.2 g/dL (31.5-36.5); Mean Corpuscular Volume 95 fL (80-100); Mean Platelet Volume 8.8 fL (9.1-12.4); Platelet Count 214 K/mm3 (150-400); RDW Coefficient Variation 15.9 % (11.7-14.2); RDW Standard Deviation 48.6 fL (35.1-46.3); Red Blood Cell Count 2.63 M/mm3 (3.80-5.20)
[2023-06-25 03:53] LABS: BAND PERCENT MAN 7 % (0-8); BASOPHILS PERCENT MAN 0 % (0-2); EOSINOPHILS ABSOLUTE MAN 0.06 K/mm3 (0.00-0.68); EOSINOPHILS PERCENT MAN 1 % (0-6); LYMPHOCYTES ABSOLUTE MAN 0.66 K/mm3 (0.84-5.20); LYMPHOCYTES PERCENT MAN 11 % (21-46); MONOCYTES ABSOLUTE MAN 1.08 K/mm3 (0.16-1.47); MONOCYTES PERCENT MAN 18 % (4-13); MYELOCYTE ABSOLUTE MAN 0.12 K/mm3 (0.00-0.00); MYELOCYTE PERCENT MAN 2 % (0-0); NEUTROPHILS ABSOLUTE MAN 4.08 K/mm3 (1.96-9.15); SEG NEUTROPHILS PERCENT MAN 61 % (41-73); TOTAL CELLS COUNTED 100
[2023-06-25 03:54] LABS: Albumin, Blood 1.5 g/dL (3.4-5.0); Albumin/Globulin Ratio 0.7 (0.8-1.8); Bilirubin, Total 0.4 mg/dL (0.1-1.0); Bun/Creatinine Ratio 16.9 (12.0-20.0); Calcium, Blood 7.2 mg/dL (8.5-10.1); Creatinine, Blood 0.77 mg/dL (0.40-1.00); Globulin, Blood 2.1 g/dL (2.2-4.0); Magnesium, Blood 1.8 mg/dL (1.6-2.4); Phosphorus, Blood 2.1 mg/dL (2.5-4.9); Potassium, Blood 3.6 mmol/L (3.5-5.5); Total Protein, Blood 3.6 g/dL (6.4-8.2)
--- NOTE | 2023-06-25 06:00 | NUR ---
SHIFT SUMMARY PT IS A&O X4; SPO2 >92% ON RA; MAP >65 (NEOSYNEPHRINE INITIATED THIS AM); HR VARIABLE IN THE 90-100'S. PT CONTINUES TO DENY CP, SOB, OR NAUSEA. NO EMESIS THIS SHIFT. PT HAD 700 MLS OF BROWN LIQUID STOOL IN RECTAL TUBE W/ 1 UNMEASURED STOOL. REINOSO CATHETER CONTINUES TO HAVE DARK YELLOW/RED TINGED URINE. NO COMPLAINTS OF DIZZINESS OR LIGHTHEADEDNESS FROM PT. NO OTHER EVENTS NOTED THIS EVENING. PT SLEPT/RESTED QUIETLY FOR MOST OF NIGHT.
--- NOTE | 2023-06-25 07:30 | NUR ---
ASSUMED CARE: PT LAYING IN BED, AWAKE AND TALKING TO STAFF. DENIES PAIN OR NAUSEA. HR LOW 100S, AFIB ON TELE. [place] AT 20MCG/MIN. HEPARIN GTT CONFIRMED WITH ORDERS. GONSALO PIGTAIL DRAINING GREEN LIQUID. REINOSO CATH WITH CRANBERRY COLORED URINE. DISCUSSED WITH DR MONZON PT'S H AND H. DAUGHTER AT BEDSIDE. NO ACUTE NEEDS AT THIS TIME.
--- NOTE | 2023-06-25 11:10 | NUR ---
PHYSICAL THERAPY AT BEDSIDE
[2023-06-25 12:08] LABS: Hemoglobin 8.2 g/dL (11.5-16.0)
--- NOTE | 2023-06-25 15:03 | NUR ---
PT'S FAMILY REPORTED BLOOD IN GONSALO PIG TAIL LINE. UPON ASSESSMENT IT WAS NOTED THAT CRANBERRY COLORED DRAINAGE WAS NOTED. DISCUSSED WITH DR GHOSH. ORDERS IN PLACE FOR TRENDING H/H DAILY. STATES THAT HEPARIN NEEDS TO CONTINUE AT THIS TIME AND TO CONTINUE TO MONITOR IT. ALSO INSTRUCTS TO NOT USE ACCORDIAN SUCTION MUCH POSSIBLE AND TO LET IT PASSIVELY DRAIN IN ORDER TO PREVENT FURTHER TRAUMA. FAMILY AWARE AND AGREEABLE TO THIS.
--- NOTE | 2023-06-25 18:55 | NUR ---
SHIFT SUMMARY: PT OF KOTA THIS SHIFT. VSS AT THIS TIME. GONSALO PIGTAIL DRAINING GREEN AND BLOOD TINGED FLUID AT THIS TIME. REINOSO CATH CONTINUES DRAINING CRANBERRY COLORED URINE. FAMILY AT BEDSIDE MAJORITY OF SHIFT. PT WORKED WITH PT/OT THIS SHIFT. DENIES PAIN OR NAUSEA.
--- NOTE | 2023-06-25 19:30 | NUR ---
ASSUMPTION OF CARE PT RESTING IN BED, ALERT AND ORIENTED. PT ANSWERS QUESTIONS APPROPRIATELY, FOLLOWS COMMANDS, AND IS ABLE TO MAKE HER NEEDS KNOWN. HR 100-110'S AFIB, MAP >65. PT ON RA, OXYGEN SATURATION >65. GONSALO DRAIN IN PLACE TO RIGHT ABDOMEN GRAVITY GRAIN, WITH LIQUID BILE OUTPUT. TEMP REINOSO IN PLACE PATENT DRAINING DARK YELLOW/RED URINE. RECTAL TUBE IN PLACE WITH LIQUID BROWN STOOL OUTPUT. MEDIPORT ACCESSED WITH LR INFUSING AT 125MLS/HR, PIV TO RAC AND RIGHT FOREARM SL. PICC LINE IN PLACE TO NUBIA, HEPARIN INFUSING AT 15.5 UNITS/KG/HR. PT DENIES PAIN OR SOB. BED IN LOWEST POSITION, CALL LIGHT WITHIN REACH. CARE CONTINUES.
[2023-06-26] VITALS (48 sets, daily range): BP systolic 84–139; BP diastolic 46–90
[2023-06-26 04:18] LABS: Hematocrit 23.9 % (33.0-51.0); Hemoglobin 7.5 g/dL (11.5-16.0); Mean Corpuscular HGB 29.8 pg (26.0-34.0); Mean Corpuscular HGB Conc 31.4 g/dL (31.5-36.5); Mean Corpuscular Volume 95 fL (80-100); Mean Platelet Volume 8.8 fL (9.1-12.4); Platelet Count 202 K/mm3 (150-400); RDW Coefficient Variation 16.4 % (11.7-14.2); RDW Standard Deviation 50.7 fL (35.1-46.3); Red Blood Cell Count 2.52 M/mm3 (3.80-5.20)
[2023-06-26 04:38] LABS: Magnesium, Blood 1.7 mg/dL (1.6-2.4)
[2023-06-26 04:42] LABS: Alanine Aminotransfer (ALT/SGP 43 U/L (12-78); Albumin, Blood 1.5 g/dL (3.4-5.0); Albumin/Globulin Ratio 0.7 (0.8-1.8); Alk Phos 102 U/L (50-136); Anion Gap Unable to Calculate mmol/L (6-16); Aspartate Aminotrans (AST/SGOT 32 U/L (12-37); Bilirubin, Total 0.5 mg/dL (0.1-1.0); Blood Urea Nitrogen 9 mg/dL (8-24); Bun/Creatinine Ratio 12.1 (12.0-20.0); CO2, Blood 33 mmol/L (21-32); Calcium, Blood 7.4 mg/dL (8.5-10.1); Chloride, Blood 108 mmol/L (98-108); Creatinine, Blood 0.74 mg/dL (0.40-1.00); Globulin, Blood 2.1 g/dL (2.2-4.0); Glomerular Filtration Rate 86 (60-); Glucose, Blood 105 mg/dL (70-99); Phosphorus, Blood 2.2 mg/dL (2.5-4.9); Potassium, Blood 3.5 mmol/L (3.5-5.5); Sodium, Blood 140 mmol/L (136-145); Total Protein, Blood 3.6 g/dL (6.4-8.2)
[2023-06-26 04:51] LABS: BAND PERCENT MAN 4 % (0-8); BASOPHILS PERCENT MAN 0 % (0-2); EOSINOPHILS PERCENT MAN 0 % (0-6); LYMPHOCYTES % ATYPICAL MANUAL 1 % (0-0); LYMPHOCYTES ABSOLUTE MAN 1.32 K/mm3 (0.84-5.20); LYMPHOCYTES PERCENT MAN 19 % (21-46); MONOCYTES ABSOLUTE MAN 0.79 K/mm3 (0.16-1.47); MONOCYTES PERCENT MAN 12 % (4-13); MYELOCYTE ABSOLUTE MAN 0.13 K/mm3 (0.00-0.00); MYELOCYTE PERCENT MAN 2 % (0-0); NEUTROPHILS ABSOLUTE MAN 4.35 K/mm3 (1.96-9.15); SEG NEUTROPHILS PERCENT MAN 62 % (41-73); TOTAL CELLS COUNTED 100
--- NOTE | 2023-06-26 06:04 | NUR ---
SHIFT SUMMARY PT RESTING IN BED, ALERT AND ORIENTED X4. PT ABLE TO ANSWER QUESTIONS, FOLLOW COMMANDS, AND MAKE NEEDS KNOWN. HR 80-110'S AFIB, MAP >65. PT DENIES CP OR SOB. PT ON RA, OXYGEN SATURATION >95%. GONSALO DRAIN IN PLACE, GRAVITY DRAIN, RECTAL TUBE IN PLACE WITH LIQUID BROWN OUTPUT. TEMP REINOSO PATENT DRAINING RED URINE TO GRAVITY. PICC LINE IN PLACE TO NUBIA INFUSING HEPARIN AT 13UNITS/KG/HR. MEDIPORT TO LEFT CHEST ACCESSED, WITH LR INFUSING AT 125MLS/HR. BED IN LOWEST POSITION, CALL LIGHT WITHIN REACH. CARE CONTINUES.
[2023-06-26 10:16] LABS: Vancomycin, Trough 19.7 ug/mL (5.0-10.0)
--- NOTE | 2023-06-26 10:20 | NUR ---
ASSUMED CARE 0700 PATIENT IS IN BED AWAKE/ALERT/ORIENTED X 4. PT MAEW NO MAJOR COMPLAINTS OF PAIN EXCEPT NOT LIKING THE RECTAL TUBE BUT DOESN'T WANT IT OUT SINCE SHE STATES SHE CANT FEEL IT COMING SINCE IT IS SO LOOSE AT THIS TIME. PATIENT HAS A PICC LINE IN PLACE LEFT UPPER ARM WITH ABX TO GIVE AND HEPARIN DRIP AND ELECTROLYTES TO REPLACE TODAY LIKE MG AND KPHOS. PATIENT ALSO HAS A MEDIPORT IN PLACE TO LEFT UPPER CHEST ACCESSED WITH LR GOING AT 125/HR. PT HAS A CHOLY DRAIN IN PLACE WITH BILE BROWN/GREEN OUT OF IT. PATIENT HAS A REINOSO IN PLACE WITH MAROON URINE OUT OF IT... PATIENT ABLE TO HELP TURN HERSELF AND SCOOT HERSELF UP IN BED THIS MORNING.
--- NOTE | 2023-06-26 10:24 | NUR ---
0830 ESBL IN SPUTUM PT PUT INTO ISOLATION. DR GHOSH AND NICOLÁS TOLD OF RESULTS. AWAITING RESPONSE IF NEW TREATMENT PLAN OR NOT. SHE IS ALREADY ON CHELSEY AND SUNNI FOR ANITBIOTICS.
--- NOTE | 2023-06-26 13:02 | NUR ---
UPDATE PATIENT HAS BEEN OUT OF BED FIRST WITH OT USING THE LIFT. PT WAS UP FOR 1 HR THEN BROUGHT BACK TO BED ON CLEAN LINEN. SHE WAS HAVING DISCOMFORT DUE TO THE RECTAL TUBE PLACEMENT AND BEING UP IN THE CHAIR. SHE WAS FEELING BETTER AFTER BEING PUT ON HER RIGHT SIDE IN BED. PULSE AFIB RATE 110 AND SHE WAS STARTED BACK ON HER METOPROLOL BUT LOWER DOSE THAN HER HOME DOSE. FAMILY HAS BEEN IN THE ROOM MOST OF THE DAY ONLY LEAVING WHEN SHE WAS BATHED AND WHEN WE MOVE HER FROM BED TO CHAIR AND BACK USING THE LIFT. SHE WAS ABLE TO EAT LUNCH SITTING UP IN THE CHAIR. AGAIN 100% OF THE MEAL WAS ATE.
--- NOTE | 2023-06-26 18:39 | NUR ---
END OF SHIFT NOTE PATIENT IS COMPLAINING OF UPPER RIGHT ABD DISCOMFORT EVER SINCE SHE HAD A BURRITO FOR LUNCH. SHE THINKS SHE NEEDS TO PASS GAS BUT UNABLE TO. SHE IS HAVING PASTY STOOLS NOW AND SO SHE AGREED TO TRY TO HAVE THE RECTAL TUBE OUT. SHEHAS HAD ONE PASTY SMALL STOOL SINCE THE TUBE HAS BEEN TAKEN OUT. PATIENT HAS HAD MAROON URINE OUT STILL. GOOD URINE OUTPUT THOUGH WITH NO CLOTS IN IT. SHE HAS HAD GOOD OUTPUT FROM THE CHOLY TUBE AND HER ABD TONES ARE ACTIVE ALL QUADRANTS. HEAT WAS APPLIED TO ABD VIA WARM BLANKET. LR STILL GOING 125/HR OTHERWISE A TKO FOR ANTIBIOTICS. CULTURES POSITIVE FOR ESBL IN SPUTUM AND URINE TODAY AND SO SHE GOT HER ANTIBIOTICS CHANGED AROUND. SEE EMAR. FAMILY HAS BEEN BY BEDSIDE ALL DAY. METOPROLOL STARTED TODAY FOR AFIB RATE HIGH WITH ACTIVITY. AFIB RATE 90 NOW THIS EVENING AND BP HOLDING 115/75 CURRENTLY, STILL GETTING MIDODRINE. WILL GIVE REPORT TO NEXT SHIFT TO RESUME CARE.
--- NOTE | 2023-06-26 19:30 | NUR ---
ASSUMPTION OF CARE PT RESTING IN BED, ALERT AND ORIENTED. PT ANSWERS QUESTIONS APPROPRIATELY, FOLLOWS COMMANDS AND IS ABLE TO MAKE NEEDS KNOWN. HR 90-100'S AFIB, MAP >65. PT DENIES CP OR SOB. PT ON RA, OXYGEN SATURATION >95%. CHOLY DRAIN IN PLACE, GRAVITY DRAIN WITH BILE OUTPUT. REINOSO IN PLACE PATENT DRINING TO GRAVITY. PICC LINE IN PLACE TO NUBIA, MEDIPORT TO LEFT CHEST ACCESSED. LR INFUSING AT 125MLS/HR. BED IN LOWEST POSITION, CALL LIGHT WITHIN REACH. CARE CONTINUES.
[2023-06-27] VITALS (17 sets, daily range): BP systolic 102–136; BP diastolic 58–91
[2023-06-27 04:15] LABS: Hematocrit 25.8 % (33.0-51.0); Hemoglobin 8.2 g/dL (11.5-16.0); Mean Corpuscular HGB Conc 31.8 g/dL (31.5-36.5); Mean Corpuscular Volume 95 fL (80-100); Platelet Count 233 K/mm3 (150-400); RDW Coefficient Variation 16.8 % (11.7-14.2); RDW Standard Deviation 51.7 fL (35.1-46.3); Red Blood Cell Count 2.73 M/mm3 (3.80-5.20)
[2023-06-27 04:43] LABS: BAND PERCENT MAN 4 % (0-8); BASOPHILS PERCENT MAN 0 % (0-2); EOSINOPHILS ABSOLUTE MAN 0.12 K/mm3 (0.00-0.68); EOSINOPHILS PERCENT MAN 2 % (0-6); LYMPHOCYTES ABSOLUTE MAN 0.68 K/mm3 (0.84-5.20); LYMPHOCYTES PERCENT MAN 11 % (21-46); MONOCYTES ABSOLUTE MAN 0.74 K/mm3 (0.16-1.47); MONOCYTES PERCENT MAN 12 % (4-13); MYELOCYTE ABSOLUTE MAN 0.24 K/mm3 (0.00-0.00); MYELOCYTE PERCENT MAN 4 % (0-0); SEG NEUTROPHILS PERCENT MAN 67 % (41-73); TOTAL CELLS COUNTED 100
[2023-06-27 05:39] LABS: Albumin, Blood 1.7 g/dL (3.4-5.0); Albumin/Globulin Ratio 0.7 (0.8-1.8); Bilirubin, Total 0.4 mg/dL (0.1-1.0); Bun/Creatinine Ratio 8.4 (12.0-20.0); Calcium, Blood 7.6 mg/dL (8.5-10.1); Creatinine, Blood 0.71 mg/dL (0.40-1.00); Globulin, Blood 2.4 g/dL (2.2-4.0); Potassium, Blood 3.6 mmol/L (3.5-5.5); Total Protein, Blood 4.1 g/dL (6.4-8.2)
--- NOTE | 2023-06-27 05:54 | NUR ---
SHIFT SUMMARY PT RESTING IN BED, SLEEPING BUT AROUSABLE, ORIENTED X4. PT ANSWERS QUESTIONS APPROPRIATELY, FOLLOWS COMMANDS, AND IS ABLE TO MAKE HER NEEDS KNOWN. PT MOVES ALL EXTREMITIES EQUALLY BILATERALLY. HR 80-90'S AFIB, MAP >65, DENIES CP OR SOB. PT ON RA, OXYGEN SATURATION >95%. GONSALO DRAIN IN PALCE TO RIGHT ABDOMEN WITH LIQUID BILE OUTPUT. REINOSO IN PLACE PATENT DRAINING TO GRAVITY. PICC LINE IN PLACE TO NUBIA, MEDIPORT IN PLACE TO LEFT UPPER CHEST, ACCESSED. LR INFUSING AT 125MLS/HR. BED IN LOWEST POSITION, CALL LIGHT WITHIN REACH. CARE CONTINUES.
--- NOTE | 2023-06-27 10:04 | NUR ---
Assumed care of pt at 0700. Report received from Reyna LOPEZ. Pt A&O x 4. Answers questions, follows commands, verbalizes needs. Pleasant and cooperative with care. No pressors. BP stable. HR 80s-90s Afib. Family visiting at bedside. Dr Castle has been in to see patient this morning and states pt is acceptable for PCU status.
--- NOTE | 2023-06-27 16:04 | NUR ---
SUMMARY Pt has been transferred to PCU 8. Telephone report given to Jeff LOPEZ, who will be assuming care at this time. Pt transferred via wheelchair accompanied by FABIAN Holden and azra RN. Assessment at time of transfer is as follows: Neuro/Musc: A&O x 4. Answers questions, follows commands, verbalizes needs. Pleasant and cooperative with care. Pupils 4 mm, PERRL. Moves all extremities with equal strength and range motion. Able to stand and pivot to transfer from bed/chair/commode using FWW, gait belt, and one person assist. Pt does not attempt transfers independently and uses call light appropriately to communicate needs. Resp: SpO2 high 90s with room air. Cardiac: Atrial fibrillation with rate 80s-90s. Some tachycardia noted with activity. HR as high as 140s while working with PT (around time noon dose metoprolol due). With most recent transfer to [facility], highest HR noted as 104. 1+ edema BLE. GI: Small amount of bilious/brown drainage to samanta drain. Tolerating PO meals well. Soft light brown BM, continent. 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 Dr Garner to reach out to urology for recommendations on continued need for indwelling catheter. Skin: New photographs obtained of redness to sacrum/perianal area. Significantly improved and minimal redness compared to photographs taken on admission. Mediport to [facility] deaccessed. Scant bleeding, dressed with adhesive bandage.
--- NOTE | 2023-06-27 16:28 | NUR ---
TRANSFER UPDATE REPORT RECIEVED FROM [employer] AT 1533. PT ARRIVED TO PCU AT 1555 VIA WHEELCHAIR AND ON RA. PT A/OX4 UPON ARRIVAL. PT ABLE TO TRANSFER FROM WHEELCHAIR USING A FWW AND GAITBELT, TOLERATED WELL. HR REMAINED STABLE DURING AMBULATION. PT BELONGINGS IN BAGS AND WITH PT DURING TRANSFER. PT CHART TRANSFERED DURING TIME OF TRANSFER. FAMILY PRESENT AT TIME OF TRANSFER. PT ON RA, NO REPORT OF SOB. NO REPORT OF CHEST PAIN/PRESSURE AT TIME OF ARRIVAL. REINOSO IN PLACE DRAINING RED URINE, PT AND FAMILY REPORTS "IT LOOKS BETTER THAN YESTERDAY." PT MEDIPORT ON LEFT CHEST WALL DEACCESSED AND BANDAGE IN PLACE.
--- NOTE | 2023-06-27 17:53 | NUR ---
SHIFT SUMMARY PT A/OX4 AND COOPERATIVE OF CARE. VSS SINCE ARRIVAL TO UNIT. LR RUNNING PER ORDERS. REINOSO DRAINING RED URINE. NO REPORT OF CHEST PAIN/PRESSURE SINCE ARRIVAL TO UNIT. PT STATED THAT SHE HAS SOB "WHEN WORKING WITH PHYSICAL THERAPY EARLIER." MEDIPORT DEACCESSED IN ICU, BANDAGE IN PLACE. PICC LINE IN NUBIA, PATENT. NO ACCUTE EVENTS.
[2023-06-28 03:40] VITALS: BP 111/70
[2023-06-28 04:18] LABS: BASOPHILS ABSOLUTE AUTO 0.02 K/mm3 (0.00-0.23); BASOPHILS PERCENT AUTO 0 % (0-2); EOSINOPHILS ABSOLUTE AUTO 0.15 K/mm3 (0.00-0.68); EOSINOPHILS PERCENT AUTO 2 % (0-6); Hematocrit 24.5 % (33.0-51.0); Hemoglobin 7.7 g/dL (11.5-16.0); IMMATURE GRAN ABSOLUTE AUTO 0.29 K/mm3 (0.00-0.10); IMMATURE GRAN PERCENT AUTO 5 % (0-1); LYMPHOCYTES ABSOLUTE AUTO 0.59 K/mm3 (0.84-5.20); LYMPHOCYTES PERCENT AUTO 9 % (21-46); MONOCYTES PERCENT AUTO 14 % (4-13); Mean Corpuscular HGB Conc 31.4 g/dL (31.5-36.5); Mean Corpuscular Volume 95 fL (80-100); Mean Platelet Volume 8.9 fL (9.1-12.4); NEUTROPHILS ABSOLUTE AUTO 4.32 K/mm3 (1.96-9.15); NEUTROPHILS PERCENT AUTO 69 % (41-73); Platelet Count 201 K/mm3 (150-400); RDW Coefficient Variation 17.4 % (11.7-14.2); RDW Standard Deviation 53.3 fL (35.1-46.3); Red Blood Cell Count 2.57 M/mm3 (3.80-5.20); White Blood Cell Count 6.27 K/mm3 (4.00-11.30)
[2023-06-28 04:51] LABS: Albumin, Blood 1.7 g/dL (3.4-5.0); Albumin/Globulin Ratio 0.7 (0.8-1.8); Bilirubin, Total 0.4 mg/dL (0.1-1.0); Bun/Creatinine Ratio 9.5 (12.0-20.0); Calcium, Blood 7.6 mg/dL (8.5-10.1); Creatinine, Blood 0.84 mg/dL (0.40-1.00); Globulin, Blood 2.4 g/dL (2.2-4.0); Potassium, Blood 3.5 mmol/L (3.5-5.5); Total Protein, Blood 4.1 g/dL (6.4-8.2)
--- NOTE | 2023-06-28 05:02 | NUR ---
END OF SHIFT NOTE: PT A&OX4 T/O SHIFT, ABLE TO CALL APPROPRIATELY AND COMMUNICATE NEEDS W/ STAFF. PLEASANT AND COOPERATIVE W/ ALL CARE. HR 90'S, AFIB ON TELE. HR 110-130'S W/ AMBULATION. BP STABLE, MAP >65. PT DENIES CHEST PAIN/PRESSURE. SPO2 >93% ON RA, DENIES SOB. AFEBRILE. PICC TO LUE, INFUSING LR PER EMAR. GONSALO DRAIN TO RIGHT ABD, 425ML OF BILIOUS/BROWN LIQUID DRAINAGE OVERNIGHT. NO C/O NAUSEA/VOMITING. UP TO RESTROOM W/ 1P SBA USING FWW. 1 LOOSE BM AT THAT TIME, CONTINENT. REINOSO CATH REMAINS IN PLACE DUE TO EMPHYSEMATOUS CYSTITIS, PATENT AND DRAINING BRIGHT RED URINE TO GRAVITY. REPOSITIONING T/O SHIFT INDEPENDENTLY. PT HAS SLEPT FOR MAJORITY OF THE NIGHT. NO OTHER EVENTS. CALL LIGHT WITHIN REACH, BED IN LOWEST POSITION. WILL REPORT TO ONCOMING RN.
[2023-06-28 08:28] VITALS: BP 120/72
[2023-06-28 12:07] VITALS: BP 110/67
[2023-06-28 16:05] VITALS: BP 117/60
--- NOTE | 2023-06-28 18:07 | NUR ---
SHIFT SUMMARY PT A/OX4 AND COOPERATIVE OF CARE. PT REMAINED AFIB THROUGHOUT SHIFT, 80-90'S AT REST AND UP TO 130'S WHEN AMBULATING. OTHER VSS THROUGHOTU SHIFT WITH O2 SATS IN THE 90'S ON RA. PT DID NOT REPORT SOB WHEN UP, PT STATED "I AM NOT SHORT OF BREATH, I JUST FEEL TIRED AFTER AWHILE AND NEED TO SIT." PT CONTINUES TO HAVE WATERY STOOLS, STOOL SAMPLE COLLECTED FOR R/O OF C-DIFF, SEE CHART. IMODIUM ORDERED FOR IF NEGATIVE FOR C-DIFF. REINOSO REMAINED IN PLACE DRAINING TO GRAVITY, TEA/RED URINE. PT UP IN CHAIR FOR FOR ENTIRE SHIFT WITH FREQUENT AMBULATIONS TO TOILET AND WORKING WITH THERAPY. FAMILY PRESENT FOR ENTIRE SHIFT, FAMILY UPDATED ON PT CONDITIONS.
[2023-06-28 19:13] LABS: Adenovirus F 40/41 Not Detected (NOT DETECT); Astrovirus Not Detected (NOT DETECT); Campylobacter Sp Not Detected (NOT DETECT); Cryptosporidium Not Detected (NOT DETECT); Cyclospora Cayetanensis Not Detected (NOT DETECT); E. Coli O157 Not Detected (NOT DETECT); Entamoeba Histolytica Not Detected (NOT DETECT); Enteroaggregative E. coli-EAEC Not Detected (NOT DETECT); Enteropathogenic E. coli-EPEC Not Detected (NOT DETECT); Enterotoxigenic E. coli-ETEC Not Detected (NOT DETECT); Giardia Lamblia Not Detected (NOT DETECT); Norovirus GI/GII Not Detected (NOT DETECT); Plesiomonas Shigelloides Not Detected (NOT DETECT); Rotavirus A Not Detected (NOT DETECT); Salmonella Sp Not Detected (NOT DETECT); Sapovirus Not Detected (NOT DETECT); Shiga Toxin-prod E. coli-STEC Not Detected (NOT DETECT); Shigella/Enteroin E. coli-EIEC Not Detected (NOT DETECT); Vibrio Cholerae Not Detected (NOT DETECT); Vibrio Sp Not Detected (NOT DETECT); Yersinia Enterocolitica Not Detected (NOT DETECT)
[2023-06-28 19:21] VITALS: BP 126/71
[2023-06-28 23:51] VITALS: BP 118/76
[2023-06-29 03:40] VITALS: BP 136/74
[2023-06-29 04:22] LABS: BASOPHILS ABSOLUTE AUTO 0.01 K/mm3 (0.00-0.23); BASOPHILS PERCENT AUTO 0 % (0-2); EOSINOPHILS ABSOLUTE AUTO 0.12 K/mm3 (0.00-0.68); EOSINOPHILS PERCENT AUTO 2 % (0-6); Hematocrit 27.1 % (33.0-51.0); Hemoglobin 8.5 g/dL (11.5-16.0); IMMATURE GRAN ABSOLUTE AUTO 0.22 K/mm3 (0.00-0.10); IMMATURE GRAN PERCENT AUTO 4 % (0-1); LYMPHOCYTES ABSOLUTE AUTO 0.48 K/mm3 (0.84-5.20); LYMPHOCYTES PERCENT AUTO 8 % (21-46); MONOCYTES ABSOLUTE AUTO 0.85 K/mm3 (0.16-1.47); MONOCYTES PERCENT AUTO 14 % (4-13); Mean Corpuscular HGB Conc 31.4 g/dL (31.5-36.5); Mean Corpuscular Volume 96 fL (80-100); Mean Platelet Volume 8.8 fL (9.1-12.4); NEUTROPHILS ABSOLUTE AUTO 4.35 K/mm3 (1.96-9.15); NEUTROPHILS PERCENT AUTO 72 % (41-73); Platelet Count 202 K/mm3 (150-400); RDW Standard Deviation 52.4 fL (35.1-46.3); Red Blood Cell Count 2.83 M/mm3 (3.80-5.20); White Blood Cell Count 6.03 K/mm3 (4.00-11.30)
[2023-06-29 04:38] LABS: Anion Gap 4 mmol/L (6-16); Blood Urea Nitrogen 7 mg/dL (8-24); Bun/Creatinine Ratio 9.2 (12.0-20.0); CO2, Blood 32 mmol/L (21-32); Calcium, Blood 7.7 mg/dL (8.5-10.1); Chloride, Blood 108 mmol/L (98-108); Creatinine, Blood 0.76 mg/dL (0.40-1.00); Glomerular Filtration Rate 84 (60-); Glucose, Blood 97 mg/dL (70-99); Phosphorus, Blood 2.4 mg/dL (2.5-4.9); Potassium, Blood 3.3 mmol/L (3.5-5.5); Sodium, Blood 144 mmol/L (136-145)
--- NOTE | 2023-06-29 05:04 | NUR ---
END OF SHIFT NOTE: PT A&OX4 T/O SHIFT, ABLE TO CALL APPROPRIATELY AND COMMUNICATE NEEDS W/ STAFF. PLEASANT AND COOPERATIVE W/ ALL CARE. HR 80-90'S, AFIB ON TELE. HR UP TO 130-140'S W/ EXERTION. BP STABLE, MAP >65. PT DENIES CHEST PAIN/PRESSURE. SPO2 >90% ON RA, DENIES SOB. AFEBRILE. PICC TO LUE, INFUSING LR PER EMAR. GONSALO DRAIN TO RIGHT ABD, 225 OF BILIOUS/BROWN LIQUID DRAINAGE OVERNIGHT. NO C/O NAUSEA/VOMITING. UP TO RESTROOM W/ 1P SBA USING FWW. 1 LIQUID BM AT START OF SHIFT, IMODIUM ADMINISTERED PER EMAR. CONTINENT. REINOSO CATH REMAINS IN PLACE DUE TO EMPHYSEMATOUS CYSTITIS, PATENT AND DRAINING PINK URINE TO GRAVITY. REPOSITIONING T/O SHIFT INDEPENDENTLY. PT SLEPT FOR MAJORITY OF THE NIGHT IN BED, UP TO CHAIR AT THIS TIME. NO OTHER EVENTS. CALL LIGHT WITHIN REACH, BED IN LOWEST POSITION. WILL REPORT TO ONCOMING RN.
[2023-06-29 07:56] VITALS: BP 121/81
[2023-06-29] MEDS ORDERED: Acetaminophen650 M1 PO (11:37)
[2023-06-29] MEDS ORDERED: BANATROL PLUS1 EAC1 PO (11:38)
[2023-06-29] MEDS ORDERED: LOPE2C PO (11:38)
[2023-06-29] MEDS ORDERED: MIDO5 PO (11:40)
[2023-06-29] MEDS ORDERED: PANT40 PO (11:42)
[2023-06-29] MEDS ORDERED: CIPR500 PO (11:42)
--- NOTE | 2023-06-29 12:59 | NUR ---
DISCHARGE UPDATE DISCHARGE PACKET GONE OVER WITH PT AND FAMILY AT 1232. PT DISCHARGED AT 1255 VIA WHEELCHAIR AND RA. PT ABLE TO TRANSFER TO WHEELCHAIR WITH MINIMAL ASSISTNCE, TOLERATED WELL. PT DISCHARGED WITH REINOSO IN PLACE PER MD ORDER. PT EDUCATED ON DRAINING AND CLEANING CATHETER AND G[place]ALO DRAIN, URINAL SENT HOME FOR PT TO KEEP RECORD OF OUTPUT. PT INSTRUCTED TO CONTACT PCP IF CATHETER BECOMES BLOCKED. PT PERSONAL BELONGINGS IN PERSONAL BAGS AND WITH FAMILY AT TIME OF DISCHARGE. DISCHARGE PACKET WITH PT AT TIME OF DISCHARGE.
== END 2023-06-29 13:06 | disposition home health service (06) | DRG 871 ==
LOC: ER 22:22 → PCU 23:55 → ICUE 23:55 → PCU 06-27 16:03
PROVIDERS: Emergency Medicine; Family Medicine; Internal Medicine; Internal Medicine Critical Care Medicine; Pharmacist; ADMIT Internal Medicine
PROC: 3E033XZ Introduction of Vasopressor into Peripheral Vein, Percutaneous Approach (ICD-10-PCS; 2023-06-20)
PROC: 3E03329 Introduction of Other Anti-infective into Peripheral Vein, Percutaneous Approach (ICD-10-PCS; 2023-06-23)
PROC: 05HY33Z Insertion of Infusion Device into Upper Vein, Percutaneous Approach (ICD-10-PCS; 2023-06-23)
PROC: 0T9B70Z Drainage of Bladder with Drainage Device, Via Natural or Artificial Opening (ICD-10-PCS; 2023-06-23)
PROC: 0F9430Z Drainage of Gallbladder with Drainage Device, Percutaneous Approach (ICD-10-PCS; principal; 2023-06-24)
DX: A41.81 Sepsis due to Enterococcus (principal); R57.1 Hypovolemic shock; R65.21 Severe sepsis with septic shock; Z16.12 Extended spectrum beta lactamase (ESBL) resistance; K81.0 Acute cholecystitis; K56.0 Paralytic ileus; N17.9 Acute kidney failure, unspecified; E87.21 Acute metabolic acidosis; A41.51 Sepsis due to Escherichia coli [E. coli]; N30.81 Other cystitis with hematuria; I48.91 Unspecified atrial fibrillation; C50.211 Malignant neoplasm of upper-inner quadrant of right female breast; R19.7 Diarrhea, unspecified; I35.0 Nonrheumatic aortic (valve) stenosis; E87.6 Hypokalemia; E83.39 Other disorders of phosphorus metabolism; Z90.11 Acquired absence of right breast and nipple; Z88.0 Allergy status to penicillin; Z88.8 Allergy status to other drugs, medicaments and biological substances; Z79.82 Long term (current) use of aspirin; Z17.1 Estrogen receptor negative status [ER-]; Z79.01 Long term (current) use of anticoagulants
CPT/HCPCS: 36415; 36569; 49405; 51702; 71045; 74018; 74177; 76705; 80048; 80053; 80069; 80202; 81001; 82330; 82533; 83605; 83735; 84100; 84443; 84484; 85014; 85018; 85025; 85610; 85730; 86850; 86900; 86901; 87040; 87070; 87077; 87086; 87186; 87205; 87507; 93005; 93010; 93306; 93971; 96365; 96366; 96375; 97110; 97116; 97163; 97166; 97530; 97535; 99285-25; A9270; C1751; C9113; J0290; J0612; J0780; J1610; J1642; J1644; J2185; J2371; J2405; J2930; J3010; J3370; J3475; J3480; J7030; J7040; J7050; J7060; J7120; Q9967

== ENCOUNTER 2025-02-16 11:29 | Day surgery (SDC) | payer MEDICARE, BC ==
[~2025-02-16] VITALS: Ht 165.1 cm; Wt 103.5 kg
[~2025-02-16 11:29] MED LIST changes: +Acetaminophen650 M1 PO; +BANATROL PLUS1 EAC1 PO; +CAPE500; +CIPR500 PO; +ELIQUIS5 M2 PO; +LOPE2C PO; +MIDO5 PO; +PANT40 PO
[2025-02-16] MEDS ORDERED: LOSA25 (12:03)
[2025-02-16] MEDS ORDERED: TORS10 (12:04)
[2025-02-16] MEDS ORDERED: POTA10T (12:05)
[2025-02-16 13:55] VITALS: BP 127/70
== END 2025-02-16 13:55 | disposition home or self-care (01) ==
LOC: ORSCSDS 11:29
PROVIDERS: Surgery
PROC: 0DBM8ZX Excision of Descending Colon, Via Natural or Artificial Opening Endoscopic, Diagnostic (ICD-10-PCS; principal; 2025-02-16 13:00)
DX: Z12.11 Encounter for screening for malignant neoplasm of colon (principal); Z80.0 Family history of malignant neoplasm of digestive organs; D12.4 Benign neoplasm of descending colon; I10 Essential (primary) hypertension; Z85.3 Personal history of malignant neoplasm of breast; I48.91 Unspecified atrial fibrillation; E66.9 Obesity, unspecified; Z68.38 Body mass index [BMI] 38.0-38.9, adult; Z79.01 Long term (current) use of anticoagulants; Z79.899 Other long term (current) drug therapy
CPT/HCPCS: 88305; J2704; J7120

== ENCOUNTER 2025-02-23 11:55 | Day surgery (SDC) | payer MEDICARE, BC ==
[~2025-02-23] VITALS: Ht 165.1 cm; Wt 104.8 kg
[~2025-02-23 11:55] MED LIST changes: +Balanced Salt Epinephrine Irrigation Solution 500 mL IR SCH; +LOSA25; +Moxifloxacin HCL 0.5 MG/0.1 ML 0.4MLSYR LEFTEYE SCH; +Ondansetron 4 MG SoluTab MM PRN; +PHENYLEPHRINE\\TROPICAMIDE\\TETRACAINE OPHTHALMIC DILATING SOLN LEFTEYE PRN; +POTA10T; +Povidone-Iodine 450 DROP/30 ML Solution LEFTEYE SCH; +Povidone-Iodine 450 DROP/30 ML Solution ONE; +TORS10; +Tetracaine HCl/Pf 0.5% Opth Soln 4 ml ONE
--- NOTE | 2025-02-23 12:23 | NUR ---
02/23/25 1223 Lizbet Paredes 1217: INITIAL ANXIETY 5/10 PER PATIENT REPORT 1222: 10 MG PO VALIUM GIVEN PER ORDERS, PULSE OX ON FINGER, CALL LIGHT IN HAND
[2025-02-23] MEDS ORDERED: VITAMIN D (12:28)
--- NOTE | 2025-02-23 12:52 | NUR ---
02/23/25 1252 Chelsea Kuhn 1248 BP:123/64 HR:58 O2%:95 RESP:16
[2025-02-23 13:07] VITALS: BP 130/63
--- NOTE | 2025-02-23 13:23 | NUR ---
02/23/25 1323 Rainer Vera PT DENIES PAIN AND NAUSEA AT THIS TIME. PT AGREEABLE TO D/C HOME WITH SPOUSE.
== END 2025-02-23 13:22 | disposition home or self-care (01) ==
LOC: ORSCSDS 11:55
PROVIDERS: Student in an Organized Health Care Education/Training Program
PROC: 08RK3JZ Replacement of Left Lens with Synthetic Substitute, Percutaneous Approach (ICD-10-PCS; principal; 2025-02-23 13:30)
DX: H25.813 Combined forms of age-related cataract, bilateral (principal); I48.91 Unspecified atrial fibrillation; I10 Essential (primary) hypertension; Z85.3 Personal history of malignant neoplasm of breast; Z79.01 Long term (current) use of anticoagulants; Z79.899 Other long term (current) drug therapy
CPT/HCPCS: A9270; V2632

== ENCOUNTER → 2025-05-04 | Outpatient (CLI) | payer MEDICARE, BC ==
[~2025-05-04] MED LIST changes: -Balanced Salt Epinephrine Irrigation Solution 500 mL IR SCH; -Moxifloxacin HCL 0.5 MG/0.1 ML 0.4MLSYR LEFTEYE SCH; -Ondansetron 4 MG SoluTab MM PRN; -PHENYLEPHRINE\\TROPICAMIDE\\TETRACAINE OPHTHALMIC DILATING SOLN LEFTEYE PRN; -Povidone-Iodine 450 DROP/30 ML Solution LEFTEYE SCH; -Povidone-Iodine 450 DROP/30 ML Solution ONE; -Tetracaine HCl/Pf 0.5% Opth Soln 4 ml ONE; +VITAMIN D
== END ==
LOC: LAB SHORT 15:10 → LAB 15:10
PROVIDERS: Internal Medicine
DX: N95.0 Postmenopausal bleeding (principal); Z78.0 Asymptomatic menopausal state
CPT/HCPCS: 87624; G0123

== ENCOUNTER 2025-07-13 21:27 | Inpatient (IN) | payer MEDICARE, BC ==
[~2025-07-13] VITALS: Ht 165.1 cm; Wt 99.6 kg
[~2025-07-13 21:27] MED LIST changes: -LOSA25; +LOSA25 PO; -POTA10T; +POTA10T PO; -TORS10; +TORS10 PO
[2025-07-13 21:56] LABS: BASOPHILS ABSOLUTE AUTO 0.02 K/mm3 (0.00-0.23); BASOPHILS PERCENT AUTO 0 % (0-2); EOSINOPHILS ABSOLUTE AUTO 0.01 K/mm3 (0.00-0.68); EOSINOPHILS PERCENT AUTO 0 % (0-6); Hematocrit 32.3 % (33.0-51.0); Hemoglobin 10.4 g/dL (11.5-16.0); Mean Corpuscular HGB Conc 32.2 g/dL (31.5-36.5); Mean Corpuscular Volume 93 fL (80-100); NRBC ABSOLUTE 0.00 K/mm3 (0.00-0.02); NRBC Auto 0.0 /100 WBC (0.0-0.2); Platelet Count 283 K/mm3 (150-400); RDW Coefficient Variation 13.2 % (11.7-14.2); RDW Standard Deviation 44.6 fL (35.1-46.3)
[2025-07-13 22:01] LABS: IMMATURE GRAN ABSOLUTE AUTO 0.07 K/mm3 (0.00-0.10); IMMATURE GRAN PERCENT AUTO 0 % (0-1); LYMPHOCYTES ABSOLUTE AUTO 1.11 K/mm3 (0.84-5.20); LYMPHOCYTES PERCENT AUTO 7 % (21-46); MONOCYTES ABSOLUTE AUTO 1.86 K/mm3 (0.16-1.47); MONOCYTES PERCENT AUTO 11 % (4-13); NEUTROPHILS ABSOLUTE AUTO 13.85 K/mm3 (1.96-9.15); NEUTROPHILS PERCENT AUTO 82 % (41-73)
[2025-07-13 22:22] LABS: Alanine Aminotransfer (ALT/SGP 53.0 U/L (12-78); Albumin, Blood 3.0 g/dL (3.4-5.0); Albumin/Globulin Ratio 0.6 (0.8-1.8); Anion Gap 12.0 mmol/L (3-11); Aspartate Aminotrans (AST/SGOT 39.0 U/L (12-37); Bilirubin, Total 0.5 mg/dL (0.1-1.0); Blood Urea Nitrogen 51.0 mg/dL (8-24); CO2, Blood 26.0 mmol/L (21-32); Calcium, Blood 9.2 mg/dL (8.5-10.1); Chloride, Blood 98.0 mmol/L (98-108); Creatinine, Blood 2.33 mg/dL (0.40-1.00); Globulin, Blood 4.7 g/dL (2.2-4.0); Glucose, Blood 125.0 mg/dL (70-99); Potassium, Blood 4.3 mmol/L (3.5-5.5); Sodium, Blood 132.0 mmol/L (136-145); Total Protein, Blood 7.7 g/dL (6.4-8.2)
[2025-07-13] MEDS ORDERED: NS 1,000 ML IV SCH ×2 (22:40→23:35)
[2025-07-13] MEDS ORDERED: CefTRIAXone Sodium 1,000 MG in NS 100 ML IV ONE ×2 (22:45→22:55)
[2025-07-13] MEDS ORDERED: Doxycycline Hyclate 100 MG in Dextrose 5% 250 ML IV ONE (22:45)
[2025-07-13 22:57] LABS: Influenza A, PCR NEGATIVE (NEGATIVE); Influenza B, PCR NEGATIVE (NEGATIVE); Resp Syncytial Virus, PCR NEGATIVE (NEGATIVE); SARS-Cov-2 (COVID-19) PCR, MMC NEGATIVE (NEGATIVE)
[2025-07-13] MEDS ORDERED: FLU VACC TS2025(65UP)/MF59C/PF 45 MCG/0.5 ML SYRINGE IM SCH (23:50)
[2025-07-14] MEDS ORDERED: CefTRIAXone Sodium 1,000 MG in NS 100 ML IV ONE (00:35)
[2025-07-14 02:18] LABS: BASOPHILS ABSOLUTE AUTO 0.03 K/mm3 (0.00-0.23); BASOPHILS PERCENT AUTO 0 % (0-2); EOSINOPHILS ABSOLUTE AUTO 0.04 K/mm3 (0.00-0.68); EOSINOPHILS PERCENT AUTO 0 % (0-6); Hematocrit 29.2 % (33.0-51.0); Hemoglobin 9.4 g/dL (11.5-16.0); Mean Corpuscular HGB Conc 32.2 g/dL (31.5-36.5); Mean Corpuscular Volume 93 fL (80-100); NRBC ABSOLUTE 0.00 K/mm3 (0.00-0.02); NRBC Auto 0.0 /100 WBC (0.0-0.2); Platelet Count 222 K/mm3 (150-400); RDW Coefficient Variation 13.2 % (11.7-14.2); RDW Standard Deviation 45.2 fL (35.1-46.3)
[2025-07-14 02:21] LABS: IMMATURE GRAN ABSOLUTE AUTO 0.11 K/mm3 (0.00-0.10); IMMATURE GRAN PERCENT AUTO 1 % (0-1); LYMPHOCYTES ABSOLUTE AUTO 1.35 K/mm3 (0.84-5.20); LYMPHOCYTES PERCENT AUTO 9 % (21-46); MONOCYTES ABSOLUTE AUTO 1.65 K/mm3 (0.16-1.47); MONOCYTES PERCENT AUTO 11 % (4-13); NEUTROPHILS ABSOLUTE AUTO 12.60 K/mm3 (1.96-9.15); NEUTROPHILS PERCENT AUTO 80 % (41-73)
[2025-07-14 02:40] LABS: Alanine Aminotransfer (ALT/SGP 43.0 U/L (12-78); Albumin, Blood 2.6 g/dL (3.4-5.0); Albumin/Globulin Ratio 0.6 (0.8-1.8); Anion Gap 12.0 mmol/L (3-11); Aspartate Aminotrans (AST/SGOT 37.0 U/L (12-37); Bilirubin, Total 0.5 mg/dL (0.1-1.0); Blood Urea Nitrogen 50.0 mg/dL (8-24); CO2, Blood 24.0 mmol/L (21-32); Calcium, Blood 8.5 mg/dL (8.5-10.1); Chloride, Blood 102.0 mmol/L (98-108); Creatinine, Blood 2.21 mg/dL (0.40-1.00); Globulin, Blood 4.1 g/dL (2.2-4.0); Glucose, Blood 120.0 mg/dL (70-99); Magnesium, Blood 1.9 mg/dL (1.6-2.4); Potassium, Blood 3.9 mmol/L (3.5-5.5); Sodium, Blood 134.0 mmol/L (136-145); Total Protein, Blood 6.7 g/dL (6.4-8.2)
[2025-07-14 06:08] LABS: Source, Urine Clean Catch
[2025-07-14 06:15] LABS: Bilirubin, Urine Neg (Neg); Color, Urine Yellow (P-Yellow); Glucose Qualitative, Urine Neg (Neg); Ketones, Urine Neg (Neg); Leukocyte Esterase, Urine 3+ (Neg); Protein, Urine 3+ (Neg); Specific Gravity, Urine 1.015 (1.003-1.022); Urobilinogen, Urine NORM (Normal)
[2025-07-14 06:28] LABS: White Blood Cells, Urine TNTC /hpf (0-5)
[2025-07-14 08:34] VITALS: BP 117/75
[2025-07-14] MEDS ORDERED: Lactobacil 2-S.Thermo-Bifido 1 1 Cap PO SCH (09:00)
[2025-07-14] MEDS ORDERED: Enoxaparin 30 MG/0.3 ML SYR SC SCH (09:00)
[2025-07-14] MEDS ORDERED: Doxycycline Hyclate 100 MG in Dextrose 5% 250 ML IV SCH (09:00)
[2025-07-14] MEDS ORDERED: Torsemide 20 MG TAB PO SCH (09:00)
[2025-07-14] MEDS ORDERED: NS 250 ML IV PRN (09:10)
[2025-07-14 12:05] VITALS: BP 100/54
[2025-07-14 16:31] VITALS: BP 146/75
--- NOTE | 2025-07-14 18:10 | NUR ---
END OF SHIFT NOTE PATIENT RESTING AT SIDE OF BED, A&O4, IND IN ROOM, BED IN LOWEST POSITION AND CALL LIGHT IN REACH, PATIENT ABLE TO MAKE NEEDS KNOWN. TELE IN PLACE, AFIB, HR 116 BY TELE STRIP, PATIENT DECLINES CHEST PAIN OR PRESSURE. DECLINES QUESTIONS OR CONCERNS. NO FEVER ON THIS SHIFT. FAMILY IN TO VISIT. NO OTHER CONCERNS FOR THIS SHIFT.
[2025-07-14 19:07] VITALS: BP 99/56
[2025-07-14] MEDS ORDERED: CefTRIAXone Sodium 1,000 MG in NS 100 ML IV SCH (21:00)
[2025-07-14] MEDS ORDERED: CefTRIAXone Sodium 2,000 MG in NS 100 ML IV SCH (21:00)
[2025-07-14 23:31] VITALS: BP 107/68
--- NOTE | 2025-07-15 04:39 | NUR ---
SHIFT SUMMARY PATIENT HAD NO ACUTE CHANGES. ALERT ORIENTED AND INDEPENDENT IN ROOM. PIV INTACT. TELE MONITOR AFIB 96. DENIES CHEST PAIN, SOB, AND N/V. TEMP AT START OF SHIFT 101.5 AND TYLENOL 650 MG GIVEN AND RECHECK AT 97.5. PIV INTACT. IV ABXS INFUSED. CALL LIGHT IN REACH. BED IN LOWEST POSITION. WILL CONTINUE TO MONITOR UNTIL DAY SHIFT NURSE ASSUMES CARE.
[2025-07-15 07:49] LABS: Hematocrit 26.8 % (33.0-51.0); Hemoglobin 8.7 g/dL (11.5-16.0); Mean Corpuscular HGB Conc 32.5 g/dL (31.5-36.5); Mean Corpuscular Volume 92 fL (80-100); NRBC ABSOLUTE 0.00 K/mm3 (0.00-0.02); NRBC Auto 0.0 /100 WBC (0.0-0.2); Platelet Count 250 K/mm3 (150-400); RDW Coefficient Variation 13.2 % (11.7-14.2); RDW Standard Deviation 45.1 fL (35.1-46.3)
[2025-07-15 07:58] VITALS: BP 104/66
[2025-07-15 08:05] LABS: Anion Gap 10.0 mmol/L (3-11); Blood Urea Nitrogen 47.0 mg/dL (8-24); CO2, Blood 26.0 mmol/L (21-32); Calcium, Blood 8.6 mg/dL (8.5-10.1); Chloride, Blood 104.0 mmol/L (98-108); Creatinine, Blood 1.77 mg/dL (0.40-1.00); Glucose, Blood 105.0 mg/dL (70-99); Potassium, Blood 3.7 mmol/L (3.5-5.5); Sodium, Blood 136.0 mmol/L (136-145)
[2025-07-15] MEDS ORDERED: Multivitamins/Minerals 1 Tab PO SCH (09:00)
[2025-07-15 15:22] VITALS: BP 99/57
--- NOTE | 2025-07-15 18:29 | NUR ---
SHIFT SUMMARY PATIENT IS A&OX4 PLEASANT AND COOPERATIVE WITH CARE. SHE IS ON ROOM AIR, WITH TELEMETRY RUNNING AFIB IN THE 'S. SHE USES THE CALL SYSTEM APPROPRIATELY AND CAN MAKE HER NEEDS KNOWN. MANY FAMILY AT THE BEDSIDE TODAY. SHE IS CONTINENT AND INDEPENDENT IN THE ROOM. PLANS TO CONTINUE ANTIBIOTICS FOR 2 MORE DAYS, REPEAT BLOOD CULTURES AT 0500 07/16/25. SHE WILL DISCHARGE HOME WITH WHEN SHE IS STABLE. BED IS LOW AND LOCKED, CALL LIGHT IN REACH.
[2025-07-15 19:13] VITALS: BP 98/59
[2025-07-15 23:17] VITALS: BP 94/58
[2025-07-16 03:30] VITALS: BP 104/61
--- NOTE | 2025-07-16 04:18 | NUR ---
SHIFT SUMMARY PATIENT HAD NO ACUTE CHANGES. ALERT ORIENTED AND INDEPENDENT IN ROOM. DENIES CHEST PAIN, SOB, AND N/V. VSS/AFEBRILE. PIV INTACT. IV ABXS INFUSED. TELE AFIB 95. SLEPT MOST OF THE SHIFT. CALL LIGHT IN REACH. BED IN LOWEST POSITION. WILL CONTINUE TO MONITOR UNTIL DAY SHIFT NURSE ASSUMES CARE.
[2025-07-16 07:35] LABS: Hematocrit 26.7 % (33.0-51.0); Hemoglobin 8.7 g/dL (11.5-16.0); Mean Corpuscular HGB Conc 32.6 g/dL (31.5-36.5); Mean Corpuscular Volume 92 fL (80-100); NRBC ABSOLUTE 0.00 K/mm3 (0.00-0.02); NRBC Auto 0.0 /100 WBC (0.0-0.2); Platelet Count 263 K/mm3 (150-400); RDW Coefficient Variation 13.2 % (11.7-14.2); RDW Standard Deviation 45.0 fL (35.1-46.3)
[2025-07-16 07:43] LABS: Anion Gap 10.0 mmol/L (3-11); Blood Urea Nitrogen 48.0 mg/dL (8-24); CO2, Blood 27.0 mmol/L (21-32); Calcium, Blood 8.9 mg/dL (8.5-10.1); Chloride, Blood 104.0 mmol/L (98-108); Creatinine, Blood 1.46 mg/dL (0.40-1.00); Glucose, Blood 104.0 mg/dL (70-99); Potassium, Blood 3.4 mmol/L (3.5-5.5); Sodium, Blood 138.0 mmol/L (136-145)
[2025-07-16 08:34] VITALS: BP 106/76
[2025-07-16] MEDS ORDERED: Potassium Chloride 10 Meq Tablet SA PO ONE (09:05)
[2025-07-16 12:24] VITALS: BP 107/70
[2025-07-16 15:00] VITALS: BP 104/71
--- NOTE | 2025-07-16 17:56 | NUR ---
SHIFT SUMMARY PT AOX4, COOPERATIVE, ABLE TO MAKE NEEDS KNOWN. PT TOLERATING MEDICATION, ON ROOM AIR. PT HAS NOT HAD ANY COMPLAINTS TODAY, HAS NOT CALLED FOR ANYTHING. NO ACUTE EVENTS TOOK PLACE THIS SHIFT. BED IN LOWEST POSITION, CALL LIGHT WITHIN REACH.
[2025-07-16 19:23] VITALS: BP 133/76
[2025-07-16 21:59] VITALS: BP 125/66
[2025-07-17 00:06] VITALS: BP 110/67
[2025-07-17 04:04] VITALS: BP 104/58
--- NOTE | 2025-07-17 04:28 | NUR ---
SHIFT SUMMARY ADMITTED FOR CHF EXACERBATION. FULL CODE. UTI+/SEPSIS, POSSIBLE PNEUMONIA. SHE IS A&O X4, INDEPENDENT, ON RA. IV ANTIB RX ARE SCHEDULED. BLOOD CULTURES+ FOR E. COLI. ON ELIQUIS. REGULAR DIET. SHE LIVES WITH HER . NO NEW CONCERNS THIS SHIFT.
[2025-07-17 06:00] LABS: BASOPHILS ABSOLUTE AUTO 0.04 K/mm3 (0.00-0.23); BASOPHILS PERCENT AUTO 1 % (0-2); EOSINOPHILS ABSOLUTE AUTO 0.25 K/mm3 (0.00-0.68); EOSINOPHILS PERCENT AUTO 5 % (0-6); Hematocrit 27.2 % (33.0-51.0); Hemoglobin 8.6 g/dL (11.5-16.0); IMMATURE GRAN ABSOLUTE AUTO 0.04 K/mm3 (0.00-0.10); IMMATURE GRAN PERCENT AUTO 1 % (0-1); LYMPHOCYTES ABSOLUTE AUTO 1.02 K/mm3 (0.84-5.20); LYMPHOCYTES PERCENT AUTO 19 % (21-46); MONOCYTES ABSOLUTE AUTO 0.68 K/mm3 (0.16-1.47); MONOCYTES PERCENT AUTO 13 % (4-13); Mean Corpuscular HGB Conc 31.6 g/dL (31.5-36.5); Mean Corpuscular Volume 94 fL (80-100); NEUTROPHILS ABSOLUTE AUTO 3.39 K/mm3 (1.96-9.15); NEUTROPHILS PERCENT AUTO 63 % (41-73); NRBC ABSOLUTE 0.00 K/mm3 (0.00-0.02); NRBC Auto 0.0 /100 WBC (0.0-0.2); Platelet Count 295 K/mm3 (150-400); RDW Coefficient Variation 13.3 % (11.7-14.2); RDW Standard Deviation 45.9 fL (35.1-46.3)
[2025-07-17 06:22] LABS: Alanine Aminotransfer (ALT/SGP 76.0 U/L (12-78); Albumin, Blood 2.3 g/dL (3.4-5.0); Albumin/Globulin Ratio 0.6 (0.8-1.8); Anion Gap 11.0 mmol/L (3-11); Aspartate Aminotrans (AST/SGOT 70.0 U/L (12-37); Bilirubin, Total 0.3 mg/dL (0.1-1.0); Blood Urea Nitrogen 47.0 mg/dL (8-24); CO2, Blood 26.0 mmol/L (21-32); Calcium, Blood 8.7 mg/dL (8.5-10.1); Chloride, Blood 104.0 mmol/L (98-108); Creatinine, Blood 1.18 mg/dL (0.40-1.00); Globulin, Blood 4.0 g/dL (2.2-4.0); Glucose, Blood 104.0 mg/dL (70-99); Potassium, Blood 3.8 mmol/L (3.5-5.5); Sodium, Blood 137.0 mmol/L (136-145); Total Protein, Blood 6.3 g/dL (6.4-8.2)
[2025-07-17 08:29] VITALS: BP 98/63
[2025-07-17] MEDS ORDERED: CefTRIAXone Sodium 2,000 MG in NS 100 ML IV SCH (09:00)
[2025-07-17 12:10] VITALS: BP 121/69
[2025-07-17 16:10] VITALS: BP 133/85
--- NOTE | 2025-07-17 17:47 | NUR ---
PT A/OX4. PLEASANT AND COOPERATIVE WITH CARE. PT SPENT MOST OF THIS SHIFT VISITING WITH FAMILY AT THE BEDSIDE. ABLE TO MAKE NEEDS KNOWN WELL. PT IS CURRENTLY SITTING UP IN CHAIR VISITING WITH FAMILY. PLAN IS FOR ONE MORE DAY OF IV ABX. NO ACUTE NEEDS AT THIS TIME.
[2025-07-17 19:30] VITALS: BP 105/61
[2025-07-18 00:10] VITALS: BP 101/57
--- NOTE | 2025-07-18 03:34 | NUR ---
SHINGLE SAWYER SUMMARY VSS. A/O X 4. COOPERATIVE WITH CARE. AFFECT CHEERFUL WHEN CONVERSING WITH STAFF. MED TELE A FIB IN THE 80'S. UP AD BJORN IN THE ROOM. RESPS EVEN. DENIED PAIN WHEN ASKED. TOLERATING MEDS WELL, VOICED TRYING TO GIVE SPUTUM, WILL TRY THROUGHOUT NIGHT, HAD ORDERED GUIAFENISEN. HAS BEEN RESTING QUIETLY WITH FEW INTERRUPTIONS THROUGH NIGHT. ABLE TO REPOSITION SELF IN BED WITHOUT ASSIST. UP AD BJORN. CALL LIGHT IN REACH, RAILS UP X 2 AND BED IN LOW POSITION FOR SAFETY. WILL CONT TO MONITOR.
[2025-07-18 04:23] VITALS: BP 105/65
[2025-07-18 05:47] LABS: BASOPHILS ABSOLUTE AUTO 0.04 K/mm3 (0.00-0.23); BASOPHILS PERCENT AUTO 1 % (0-2); EOSINOPHILS ABSOLUTE AUTO 0.21 K/mm3 (0.00-0.68); EOSINOPHILS PERCENT AUTO 4 % (0-6); Hematocrit 28.1 % (33.0-51.0); Hemoglobin 8.8 g/dL (11.5-16.0); IMMATURE GRAN ABSOLUTE AUTO 0.04 K/mm3 (0.00-0.10); IMMATURE GRAN PERCENT AUTO 1 % (0-1); LYMPHOCYTES ABSOLUTE AUTO 0.96 K/mm3 (0.84-5.20); LYMPHOCYTES PERCENT AUTO 20 % (21-46); MONOCYTES ABSOLUTE AUTO 0.70 K/mm3 (0.16-1.47); MONOCYTES PERCENT AUTO 15 % (4-13); Mean Corpuscular HGB Conc 31.3 g/dL (31.5-36.5); Mean Corpuscular Volume 93 fL (80-100); NEUTROPHILS ABSOLUTE AUTO 2.78 K/mm3 (1.96-9.15); NEUTROPHILS PERCENT AUTO 59 % (41-73); NRBC ABSOLUTE 0.00 K/mm3 (0.00-0.02); NRBC Auto 0.0 /100 WBC (0.0-0.2); Platelet Count 310 K/mm3 (150-400); RDW Coefficient Variation 13.3 % (11.7-14.2); RDW Standard Deviation 45.8 fL (35.1-46.3)
[2025-07-18 06:12] LABS: Alanine Aminotransfer (ALT/SGP 65.0 U/L (12-78); Albumin, Blood 2.5 g/dL (3.4-5.0); Albumin/Globulin Ratio 0.6 (0.8-1.8); Anion Gap 6.0 mmol/L (3-11); Aspartate Aminotrans (AST/SGOT 49.0 U/L (12-37); Bilirubin, Total 0.3 mg/dL (0.1-1.0); Blood Urea Nitrogen 40.0 mg/dL (8-24); CO2, Blood 31.0 mmol/L (21-32); Calcium, Blood 9.0 mg/dL (8.5-10.1); Chloride, Blood 103.0 mmol/L (98-108); Creatinine, Blood 1.18 mg/dL (0.40-1.00); Globulin, Blood 4.1 g/dL (2.2-4.0); Glucose, Blood 100.0 mg/dL (70-99); Potassium, Blood 3.7 mmol/L (3.5-5.5); Sodium, Blood 136.0 mmol/L (136-145); Total Protein, Blood 6.6 g/dL (6.4-8.2)
[2025-07-18 07:12] VITALS: BP 107/64
[2025-07-18 09:05] LABS: IMMATURE RETIC FRACTION 13.2 % (2.3-16.0); RETIC HGB EQUIVALENT 30.9 pg (28.20-36.60); RETICULOCYTE COUNT PERCENT 1.04 % (0.50-2.50)
[2025-07-18 09:39] LABS: Ferritin, Serum 278.0 ng/mL (8-252); Total Iron Binding Capacity 221.0 ug/dL (250-450)
[2025-07-18] MEDS ORDERED: Potassium Chloride 10 Meq Tablet SA PO ONE (10:45)
[2025-07-18] MEDS ORDERED: Iron Dextran 50 MG / ML 2ML Vial IV ONE (11:30)
[2025-07-18] MEDS ORDERED: AMOCLA875 PO (11:50)
[2025-07-18] MEDS ORDERED: VISBIOME 112.51 EACH PO (11:52)
[2025-07-18] MEDS ORDERED: JARDIANCE10 MG PO (11:52)
[2025-07-18] MEDS ORDERED: DOXY100 PO (11:52)
[2025-07-18] MEDS ORDERED: Iron Dextran 975 MG in NS 250 ML IV ONE (13:00)
--- NOTE | 2025-07-18 15:13 | NUR ---
PT DISCHARGED AT APPROX 1510. TAKEN OUT VIA W/C BY [employer]OR OPERATOR. DISHCARGE INSTRUCTIONS ON FOLLOW UP APPOINTMENTS AND NEW MEDICATIONS DISCUSSED WITH PATIENT AND AT THE BEDSIDE. MEDS FAXED TO [facility] PER PTS REQUEST.
== END 2025-07-18 16:10 | disposition home or self-care (01) | DRG 871 ==
LOC: ER 21:27 → ERHOLD 21:28 → MEDS 07-14 08:28
PROVIDERS: Emergency Medicine; Family Medicine; Internal Medicine; ADMIT Internal Medicine
DX: A41.51 Sepsis due to Escherichia coli [E. coli] (principal); I50.33 Acute on chronic diastolic (congestive) heart failure; J18.9 Pneumonia, unspecified organism; E87.1 Hypo-osmolality and hyponatremia; N39.0 Urinary tract infection, site not specified; N17.9 Acute kidney failure, unspecified; I47.20 Ventricular tachycardia, unspecified; Z16.12 Extended spectrum beta lactamase (ESBL) resistance; R65.20 Severe sepsis without septic shock; D50.9 Iron deficiency anemia, unspecified; I11.0 Hypertensive heart disease with heart failure; I48.0 Paroxysmal atrial fibrillation; Z95.2 Presence of prosthetic heart valve; Z85.42 Personal history of malignant neoplasm of other parts of uterus; Z90.710 Acquired absence of both cervix and uterus; Z88.1 Allergy status to other antibiotic agents; Z88.8 Allergy status to other drugs, medicaments and biological substances; Z79.01 Long term (current) use of anticoagulants; Z79.899 Other long term (current) drug therapy; Z98.890 Other specified postprocedural states; Z23 Encounter for immunization
CPT/HCPCS: 36415; 71046; 80048; 80053; 81001; 82607; 82728; 82746; 83540; 83550; 83605; 83735; 83880; 84145; 84443; 84484; 85025; 85027; 85045; 87040; 87077; 87086; 87186; 87637; 93005; 93010; 93306; 93308; 93321; 96361; 96365; 96366; 96367; 96375; 99285-25; A9270; G0378; J0696; J1750; J2185; J7030; J7050; J7060